=== PATIENT | female | born 1980 | race Caucasian/White ===

== ENCOUNTER 2021-12-12 15:17 | Outpatient (CLI) | payer SELFPAY ==
--- NOTE | 2021-12-12 15:25 | XR_ITS ---
WS: [id number] Chest 2 views, 12/12/2021 Clinical Data: POSITIVE TB Comparison: None. Findings: No nodules, masses or effusions are seen. The heart is normal. The pulmonary vascularity is not increased. No pneumonia or pneumothorax is seen. There is no evidence of tuberculosis. XR/XR chest 2V* [id number] Impression: Negative chest.
== END 2021-12-12 15:18 | disposition home or self-care (01) ==
LOC: RAD 15:19
PROVIDERS: Family Provider Electrodiagnostic Medicine; Visit Provider Family Medicine
DX: R76.11 Nonspecific reaction to tuberculin skin test without active tuberculosis (principal)
CPT/HCPCS: 71046

== ENCOUNTER → 2021-12-21 15:35 | Outpatient (BNVA) | payer SELFPAY | PROVIDERS: Family Provider Electrodiagnostic Medicine; PCP Electrodiagnostic Medicine; Visit Provider Registered Nurse Neonatal Intensive Care | DX: R50.9 Fever, unspecified (principal); J02.9 Acute pharyngitis, unspecified; J30.9 Allergic rhinitis, unspecified | CPT/HCPCS: 87426; 87880 ==

== ENCOUNTER 2022-05-19 20:00 | Outpatient (CLI) | payer OTHER, SELFPAY | END 2022-05-19 20:01 | disposition home or self-care (01) | LOC: SLEEP 05-20 05:46 | PROVIDERS: Family Provider Electrodiagnostic Medicine; PCP Electrodiagnostic Medicine; Visit Provider Electrodiagnostic Medicine | DX: G47.10 Hypersomnia, unspecified (principal); R53.83 Other fatigue; G47.33 Obstructive sleep apnea (adult) (pediatric) | CPT/HCPCS: 95810 ==

== ENCOUNTER → 2022-09-17 16:00 | Outpatient (BNVA) | payer OTHER, SELFPAY | PROVIDERS: Family Provider Electrodiagnostic Medicine; PCP Electrodiagnostic Medicine; Visit Provider Nurse Practitioner Women's Health | DX: N92.6 Irregular menstruation, unspecified (principal) | CPT/HCPCS: 84146; 84402; 84443; 84702; 85025 ==

== ENCOUNTER 2022-10-14 06:51 | Outpatient (CLI) | payer OTHER, SELFPAY ==
--- NOTE | 2022-10-14 07:15 | US_ITS ---
WS: [id number] US transvaginal [id number] REASON FOR EXAM: N92.6 - Irregular menstruation, unspecified FINDINGS: Small nabothian cysts in the cervix. The uterus measures 7.06 x 4.52 x 4.14 cm. No uterine mass. The endometrium measures 6.9 mm. There is a complex mass within the left ovary. The solid appearing portion of the mass measures 5.0 x 4.5 x 5.4 cm. The crescent cystic portion measures 1.2 x 4.5 x 3.9 cm. No blood flow is identified with Doppler in the solid portion of the mass. There is a second complex ovarian mass which is characterized as a partially septated cyst. The septa tions while somewhat thickened do not contain blood flow by Doppler interrogation. This mass measures 4.5 x 5.5 x 3.6 cm. In the right adnexa ovarian tissue is not readily identified. There is a complex septated cystic mass in the right adnexa which measures 3.9 x 3.1 x 4.0 cm. No Doppler blood flow identified in the septa tions. Small amount of free fluid in the cul-de-sac. US/US transvaginal [id number] IMPRESSION: Complex pelvic abnormalities as above. The mass that appears partially solid in the left ovary may represent a cyst containing hemorrhage or other debris since no Doppler signal was obtained. The se masses are likely benign with small neoplastic potential. The mass in the right adnexa has the appearance of a complex ovarian cyst howev er definite ovarian origin was not established. This mass has a more significan t potential for neoplasm.
== END 2022-10-14 06:52 | disposition home or self-care (01) ==
PROVIDERS: PCP Electrodiagnostic Medicine; Visit Provider Nurse Practitioner Women's Health
DX: N92.6 Irregular menstruation, unspecified (principal); N93.9 Abnormal uterine and vaginal bleeding, unspecified; R19.00 Intra-abdominal and pelvic swelling, mass and lump, unspecified site; N83.8 Other noninflammatory disorders of ovary, fallopian tube and broad ligament
CPT/HCPCS: 76830

== ENCOUNTER → 2022-10-17 14:14 | Outpatient (BNVA) | payer OTHER, SELFPAY | PROVIDERS: PCP Electrodiagnostic Medicine; Visit Provider Nurse Practitioner Women's Health | DX: N92.6 Irregular menstruation, unspecified (principal); Z01.818 Encounter for other preprocedural examination; Z12.4 Encounter for screening for malignant neoplasm of cervix; N83.299 Other ovarian cyst, unspecified side | CPT/HCPCS: 81025; 87624; 88305 ==

== ENCOUNTER → 2022-11-20 12:08 | Outpatient (BNVA) | payer OTHER, SELFPAY | PROVIDERS: PCP Electrodiagnostic Medicine; Visit Provider Nurse Practitioner Women's Health | DX: N92.6 Irregular menstruation, unspecified (principal); N83.299 Other ovarian cyst, unspecified side | CPT/HCPCS: 81025 ==

== ENCOUNTER → 2022-12-04 10:23 | Outpatient (BNVA) | payer OTHER, SELFPAY | PROVIDERS: PCP Electrodiagnostic Medicine; Visit Provider Nurse Practitioner Women's Health | DX: N92.6 Irregular menstruation, unspecified (principal) | CPT/HCPCS: 76830 ==

== ENCOUNTER → 2023-01-15 11:00 | Outpatient (BNVA) | payer OTHER, SELFPAY | PROVIDERS: PCP Electrodiagnostic Medicine; Visit Provider Obstetrics & Gynecology | DX: N83.299 Other ovarian cyst, unspecified side (principal); I10 Essential (primary) hypertension | CPT/HCPCS: 83001 ==

== ENCOUNTER 2023-01-30 07:22 | Outpatient (CLI) | payer OTHER, SELFPAY ==
--- NOTE | 2023-01-30 07:32 | MM_ITS ---
WS: [id number] SCREENING DIGITAL TOMOSYNTHESIS MAMMOGRAM WITH CAD HISTORY: SCREEN COMPARISON: None available. Bilateral CC and MLO with tomosynthesis views submitted. Synthetic mammography reviewed. Computer aid ed detection analyzed. Breast composition: There are scattered areas of fibroglandular density. No suspicious masses, microc alcifications or architectural distortion. IMPRESSION: MM/[place] [id number] BI-RADS: 1-Negative FOLLOW UP: 1 Year Follow-up
== END 2023-01-30 07:23 | disposition home or self-care (01) ==
LOC: RAD 07:22
PROVIDERS: PCP Electrodiagnostic Medicine; Visit Provider Nurse Practitioner Women's Health
DX: Z12.31 Encounter for screening mammogram for malignant neoplasm of breast (principal)
CPT/HCPCS: 77063; 77067

== ENCOUNTER → 2023-02-10 10:00 | Day surgery (SDC) | payer OTHER, SELFPAY ==
[2023-02-02 10:21] LABS: Add Urine Microscopic? NO; Charge for UA Resulting for Rev
[2023-02-02 10:45] LABS: Basophils # 0.1 10^3/uL (0.0-0.1); Basophils % 0.6 %; Eosinophils # 0.2 10^3/uL (0.0-0.8); Eosinophils % 1.5 %; Hematocrit 43.8 % (36-47); Lymphocytes % 19.4 %; Mean Corpuscular HGB Conc 33.6 g/dL (30-55); Mean Corpuscular Hemoglobin 27.2 pg (27-33); Mean Corpuscular Volume 81.1 fl (85-98); Mean Platelet Volume 8.9 fL (7.4-10.4); Monocytes # 0.3 10^3/uL (0.2-0.9); Monocytes % 2.8 %; Neutrophils # 7.93 10^3/uL (1.8-7.7); Neutrophils % 75.2 %; Nucleated Red Blood Cells % 0 %; Platelet Count 466 10^3/cmm (157-399); Red Cell Distribution Width 13.2 % (12.1-15.1); White Blood Count 10.54 10^3/uL (3.29-11.43)
[2023-02-02 10:47] LABS: Bilirubin Urine Neg (Negative); Blood Urine Neg (Negative); Glucose Urine UA Norm (Normal); Ketones Urine 1+ (Negative); Leukocyte Esterase Urine Negative (Negative); Nitrate Urine Negative (Negative); Protein Urine Neg (Negative); Specific Gravity, Urine 1.015 (1.005-1.030); Urine Appearance Clear (CLEAR); Urine Color Yellow (Yellow); Urobilinogen Urine Norm (Negative); pH Urine 6 (5-7)
[2023-02-02 10:48] LABS: Anion Gap 15.1 (5-19); Blood Urea Nitrogen 12 mg/dL (6-20); Calcium 8.9 mg/dL (8.5-10.5); Carbon Dioxide 26 mmol/L (22-29); Chloride 101 mmol/L (98-107); Glomerular Filtration Rate 91.8 mL/min (90-130); Glucose 155 mg/dL (65-115); Osmolality Calculated 289 mOsm/kg (285-295); Potassium 4.1 mmol/L (3.5-5.1); Sodium 138 mmol/L (136-145)
--- NOTE | 2023-02-02 10:54 | PC.NURSE ---
Notified Dr. Brock and Dr. Rosa nurse Paul of patient medication Isoniazid. Patient states she has been on medication for roughly 10 months per her report and has one more month of medication until her treatment is completed. Patient states she had a positive skin test and was started on the treatment. Per Dr. Brock will reschedule patient procedure until she has completed her course of Isoniazid. Dr. Rosa aware and agreeable. Instructed patient to call clinic.
== END ==
LOC: OR 06-09 11:24
PROVIDERS: PCP Electrodiagnostic Medicine; Visit Provider Obstetrics & Gynecology
DX: Z53.9 Procedure and treatment not carried out, unspecified reason (principal)
CPT/HCPCS: 80048; 81003; 85025

== ENCOUNTER 2023-03-20 08:10 | Emergency (ER) | payer OTHER, SELFPAY ==
[2023-03-20 08:16] VITALS: PULSE 101; RESP 18; TEMP 37.4; O2SAT 99; BMI 44.6
--- NOTE | 2023-03-20 08:23 | ED_ITS ---
HPI - Allergic Reaction General: Chief complaint: Allergic Reaction Stated complaint: alergic reaction Time Seen by Provider: 03/20/23 08:12 Source: patient Mode of arrival: ambulatory Limitations: no limitations History of Present Illness: HPI narrative: 43-year-old female states that she woke up this morning and having some swelling in her lips folic she had some slight throat swelling. She denies any shortness of breath.She denies any vomiting or diarrhea. She is on lisinopril has never had allergic reaction the past. Associated symptoms: Deny abdominal pain, nausea or vomiting Review of Systems Const: Denies: fever(s), chills, body aches or change in appetite ENMT: Denies: throat pain or dental pain Card: Denies: chest pain Resp: Denies: dyspnea GI: Denies: abdominal pain, nausea, vomiting or diarrhea Musc: Denies: neck pain or back pain Skin/Breast: Denies: rash Neuro: Denies: headache(s) PFSH ED PFSH: Medical History Bartholin cyst (~2018) I patient reported history that was suspicious for her originally having a Bartholin's gland abscess. However, at this point, there is no evidence of abscess. All I can find on exam is a mildly enlarged cystic structure in the area of the Bartholin's gland. I discussed with her that a Bartholin's gland cyst does not need to be treated. If, however, it becomes painful or start showing signs of infection, it can be drained or possibly be treated by a marsupialization. Questions were answered No pertinent past medical history neghx: thyroid,dvt/pe PCP: Dr. Cabrera Hypertension Type 2 diabetes mellitus Anxiety with depression Surgical History No pertinent past surgical history Family History Mother Diabetes Hypertension Grandmother Diabetes maternal paternal Stroke paternal Father Diabetes Grandfather Heart disease paternal Family/Other Heart disease paternal uncle Denies family history of Colon cancer Ovarian cancer Hyperlipidemia Breast cancer Uterine cancer Thyroid disease Physical Exam Const: COMMON NORMALS: no acute distress, patient oriented x3 and healthy appearing HENMT: COMMON NORMALS: normocephalic and atraumatic HEAD & SCALP: normocephalic and atraumatic OTHER: Slight swelling of lips no tongue swelling handling secretions well. Eye: COMMON NORMALS: Equal, round and reactive pupils present and EOMs intact bilaterally PUPIL: Yes Equal, round and reactive pupils present Neck/C-Spine: COMMON NORMALS: full ROM and supple Chest: COMMONS NORMALS: normal inspection of the chest and normal palpation of entire chest wall Resp: COMMON NORMALS: normal respiratory effort, No retractions, No use of accessory muscles and clear to auscultation bilaterally AUSCULTATION: clear to auscultation bilaterally Cardio: COMMON NORMALS: regular rate, regular rhythm and No murmurs present (Cardio) RATE: regular rate RHYTHM: regular rhythm GI: COMMON NORMALS: Normal to inspection, nondistended, normoactive bowel sounds present, Soft to palpation, non-tender and no masses PALPATION: Yes Soft to palpation Extremity: COMMON NORMALS: normal to inspection and full ROM Neuro: COMMON NORMALS: patient oriented x3, moves all extremities and no focal motor deficits Psych: COMMON NORMALS: mental status grossly normal, Normal thought process present and cooperative THOUGHT PROCESS: Normal thought process present Skin: COMMON NORMALS: no rashes or lesions noted and no wounds GENERAL SKIN EXAM: no rashes or lesions noted Course Vital Signs: Vital signs: Vital Signs Temperature 99.3 F 03/20/23 08:16 Pulse Rate 94 03/20/23 08:43 Respiratory Rate 18 03/20/23 08:43 Blood Pressure 177/111 03/20/23 08:43 Pulse Oximetry 98 03/20/23 08:43 Oxygen Delivery Me thod Room Air 03/20/23 08:43 MDM - Allergic Reaction Medical Decision Making patient presents for lip swelling mild angioedema possibly from her lisinopril she is improved here she has no signs of airway involvement I feel she is stable for discharge. Did inform her to stop taking her lisinopril we will start her on Norvasc at this time she is to follow-up with PCP and return if worsening. Medical Records I reviewed the patient's medical records. No radiology studies performed this visit Discharge Plan Discharge Patient Disposition: Home Clinical Impression: Angioedema Condition: Stable Prescriptions: New Norvasc 10 mg tablet 10 mg PO DAILY Qty: 30 0RF Discontinued lisinopril 40 mg tablet 40 mg PO QAM No Action metoprolol tartrate 25 mg tablet 25 mg PO QAM nifedipine 90 mg tablet extended release 90 mg PO QAM Rybelsus 3 mg tablet 3 mg PO QAM metformin 500 mg tablet 500 mg PO BID pantoprazole 40 mg tablet,delayed release (DR/EC) 40 mg PO QAM venlafaxine 150 mg capsule,extended release 24hr 150 mg PO BEDTIME benzonatate 100 mg capsule 100 mg PO TID PRN (Reason: Cough) olopatadine 0.1 % drops See Rx Instructions .ROUTE .COMPLEX Rx Instructions: instill ONE drop into THE affected eye(s) TWICE DAILY PER an interval of 6-8 HOURS albuterol sulfate 90 mcg/actuation HFA aerosol inhaler 1 - 2 puff INHALATION Q4H PRN (Reason: Shortness Of Breath) budesonide-formoterol 160-4.5 mcg/actuation HFA aerosol inhaler 2 puff INHALATION BID Flonase Allergy Relief 50 mcg/actuation spray,suspension 1 - 2 spray intranasal DAILY PRN (Reason: Allergy Symptoms) Rx Instructions: administer into each nostril Discharge Orders: Discharge ED (Routine); Ordered 03/20/23 Ordered By: Carole Catalan Referrals: Ravi Cabrera DO [Primary Care Provider] - 1-3 days Discharge Diet: Advance as tolerated Discharge Activity: Resume usual activity Patient Instructions: Angioedema (ED) Coding Level of Care Code ED [employer] Hand for Deanna Campos
[2023-03-20] MEDS: famotidine 20 mg/2 mL INJ 40 MG IVP (08:38)
[2023-03-20] MEDS: diphenhydrAMINE 50 mg/mL SDV 1mL IVP (08:38)
[2023-03-20] MEDS: methylPREDNISolone sod succ 125 mg/2 mL INJ IVP (08:39)
[2023-03-20 08:43] VITALS: BP 177/111; PULSE 94; RESP 18; O2SAT 98
--- NOTE | 2023-03-20 09:12 | PC.PHAR ---
pt states she takes care of her own medications-pt states she is no longer taking isoniazid 300mg daily ext shows last filled 01/26/23 30d/s-ext shows prednisone 20mg take 40mg qam rx filled on 03/11/23 10d/s pt states not taken for 2-3 days states she was feeling better and states the dr told her she could stop taking
== END 2023-03-20 09:52 | disposition home or self-care (01) ==
PROVIDERS: Emergency Provider Emergency Medicine; PCP Electrodiagnostic Medicine
DX: T78.3XXA Angioneurotic edema, initial encounter (principal); I10 Essential (primary) hypertension; E11.9 Type 2 diabetes mellitus without complications; X58.XXXA Exposure to other specified factors, initial encounter
CPT/HCPCS: 96374; 96375; 99284; J1200; J2930; J3490

== ENCOUNTER 2023-03-21 10:56 | Emergency (ER) | payer OTHER, SELFPAY ==
[2023-03-21 11:07] VITALS: BP 213/123; PULSE 87; RESP 22; O2SAT 95
[2023-03-21] MEDS: diphenhydrAMINE 50 mg/mL SDV 1mL IVP (11:23)
--- NOTE | 2023-03-21 11:23 | W.ED.ALLEREA ---
HPI - Allergic Reaction General: Chief complaint: Allergic Reaction Stated complaint: allergic reaction Time Seen by Provider: 03/21/23 10:57 Source: patient Mode of arrival: ambulatory Limitations: no limitations History of Present Illness: HPI narrative: 43-year-old female seen here yesterday for angioedema is likely due to her lisinopril she did stop her lisinopril states she felt like she had little worsening swelling of her lips and tongue. She is in no severe distress. No difficulty swallowing she denies any worsening proving factors did take a Benadryl at home. Associated symptoms: Deny abdominal pain, nausea or vomiting Review of Systems Const: Denies: fever(s), chills, body aches or change in appetite ENMT: Denies: throat pain or dental pain Card: Denies: chest pain Resp: Denies: dyspnea GI: Denies: abdominal pain, nausea, vomiting or diarrhea : Denies: dysuria Musc: Denies: neck pain or back pain Skin/Breast: Denies: rash Neuro: Denies: headache(s) PFSH ED PFSH: Medical History Bartholin cyst (~2018) I patient reported history that was suspicious for her originally having a Bartholin's gland abscess. However, at this point, there is no evidence of abscess. All I can find on exam is a mildly enlarged cystic structure in the area of the Bartholin's gland. I discussed with her that a Bartholin's gland cyst does not need to be treated. If, however, it becomes painful or start showing signs of infection, it can be drained or possibly be treated by a marsupialization. Questions were answered No pertinent past medical history neghx: thyroid,dvt/pe PCP: Dr. Cabrera Hypertension Type 2 diabetes mellitus Anxiety with depression Surgical History No pertinent past surgical history Family History Mother Diabetes Hypertension Grandmother Diabetes maternal paternal Stroke paternal Father Diabetes Grandfather Heart disease paternal Family/Other Heart disease paternal uncle Denies family history of Colon cancer Ovarian cancer Hyperlipidemia Breast cancer Uterine cancer Thyroid disease Physical Exam Const: COMMON NORMALS: no acute distress, patient oriented x3 and healthy appearing HENMT: COMMON NORMALS: normocephalic and atraumatic HEAD & SCALP: normocephalic and atraumatic OTHER: Slight swelling of the lips no breathing difficulties no severe tongue swelling Eye: COMMON NORMALS: Equal, round and reactive pupils present and EOMs intact bilaterally PUPIL: Yes Equal, round and reactive pupils present Neck/C-Spine: COMMON NORMALS: full ROM and supple Chest: COMMONS NORMALS: normal inspection of the chest and normal palpation of entire chest wall Resp: COMMON NORMALS: normal respiratory effort, No retractions, No use of accessory muscles and clear to auscultation bilaterally AUSCULTATION: clear to auscultation bilaterally Cardio: COMMON NORMALS: regular rate, regular rhythm and No murmurs present (Cardio) RATE: regular rate RHYTHM: regular rhythm GI: COMMON NORMALS: Normal to inspection, nondistended, normoactive bowel sounds present, Soft to palpation, non-tender and no masses PALPATION: Yes Soft to palpation Extremity: COMMON NORMALS: normal to inspection and full ROM Neuro: COMMON NORMALS: patient oriented x3, moves all extremities and no focal motor deficits Psych: COMMON NORMALS: mental status grossly normal, Normal thought process present and cooperative THOUGHT PROCESS: Normal thought process present Skin: COMMON NORMALS: no rashes or lesions noted and no wounds GENERAL SKIN EXAM: no rashes or lesions noted Course Vital Signs: Vital signs: Vital Signs Pulse Rate 83 03/21/23 12:42 Respiratory Rate 15 03/21/23 13:24 Blood Pressure 140/84 03/21/23 13:24 Pulse Oximetry 97 03/21/23 13:24 Oxygen Delivery Me thod Room Air 03/21/23 13:24 MDM - Allergic Reaction Medical Decision Making Patient presents here with angioedema that is improved here she has no severe swelling she is stable for discharge she is to continue the Norvasc she is stopped her lisinopril follow-up PCP and return if worsening. Medical Records I reviewed the patient's medical records. Lab Data I reviewed the patient's lab results. 03/21/23 11:19 03/21/23 11:[address] 03/21/23 11:36 IMPRESSION: No acute findings. Laboratory Results WBC 20.24 10^3/uL (3.29-11.43) H 03/21/23 11:19 RBC 4.71 10^6/uL (3.85-5.65) 03/21/23 11:19 Hgb 12.70 g/dL (11.27-16.99) 03/21/23 11:19 Hct 39.3 % (36-47) 03/21/23 11:19 MCV 83.4 fl (85-98) L 03/21/23 11:19 MCH 27.0 pg (27-33) 03/21/23 11:19 MCHC 32.3 g/dL (30-55) 03/21/23 11:19 RDW 14.6 % (12.1-15.1) 03/21/23 11:19 Plt Count 427 10^3/cmm (157-399) H 03/21/23 11:19 MPV 9.0 fL (7.4-10.4) 03/21/23 11:19 Neut % (Auto) 68.3 % 03/21/23 11:19 Lymph % (Auto) 20.7 % 03/21/23 11:19 [place] % (Auto) 4.3 % 03/21/23 11:19 Eos % (Auto) 5.8 % 03/21/23 11:19 Baso % (Auto) 0.3 % 03/21/23 11:19 Neut # (Auto) 13.80 10^3/uL (1.8-7.7) H 03/21/23 11:19 Lymph # (Auto) 4.2 10^3/uL (0.8-4.8) 03/21/23 11:19 [place] # (Auto) 0.9 10^3/uL (0.2-0.9) 03/21/23 11:19 Eos # (Auto) 1.2 10^3/uL (0.0-0.8) H 03/21/23 11:19 Baso # (Auto) 0.1 10^3/uL (0.0-0.1) 03/21/23 11:19 Nucleated RBC % (auto) 0 % 03/21/23 11:19 Nucleated RBCs # 0.0 /100WBC 03/21/23 11:19 Sodium 136 mmol/L (136-145) 03/21/23 11:19 Potassium 4.3 mmol/L (3.5-5.1) 03/21/23 11:19 Chloride 100 mmol/L (98-107) 03/21/23 11:19 Carbon Dioxide 28 mmol/L (22-29) 03/21/23 11:19 Anion Gap 12.3 (5-19) 03/21/23 11:19 BUN 15 mg/dL (6-20) 03/21/23 11:19 Creatinine 0.6 mg/dL (0.5-0.9) 03/21/23 11:19 GFR Calculation 109.1 mL/min (90-130) 03/21/23 11:19 Glucose 147 mg/dL (65-115) H 03/21/23 11:19 Calculated Osmolality 286 mOsm/kg (285-295) 03/21/23 11:19 Calcium 8.8 mg/dL (8.5-10.5) 03/21/23 11:19 Total Bilirubin 0.4 mg/dL (0.15-1.2) 03/21/23 11:19 AST 11 U/L (0-32) 03/21/23 11:19 ALT 16 U/L (0-33) 03/21/23 11:19 Alkaline Phosphatase 66 U/L (35-105) 03/21/23 11:19 Total Protein 6.7 g/dL (6.6-8.7) 03/21/23 11:19 Albumin 3.9 g/dL (3.5-5.2) 03/21/23 11:19 Globulin 2.8 g/dL (1.3-4.6) 03/21/23 11:19 All radiology interpretation(s) finalized by discharge Discharge Plan Discharge Patient Disposition: Home Clinical Impression: Angioedema Condition: Stable Prescriptions: No Action metoprolol tartrate 25 mg tablet 25 mg PO QAM nifedipine 90 mg tablet extended release 90 mg PO QAM Rybelsus 3 mg tablet 3 mg PO QAM metformin 500 mg tablet 500 mg PO BID pantoprazole 40 mg tablet,delayed release (DR/EC) 40 mg PO QAM venlafaxine 150 mg capsule,extended release 24hr 150 mg PO BEDTIME olopatadine 0.1 % drops See Rx Instructions .ROUTE .COMPLEX PRN (Reason: ALLERGIES) Rx Instructions: instill ONE drop into THE affected eye(s) TWICE DAILY PER an interval of 6-8 HOURS albuterol sulfate 90 mcg/actuation HFA aerosol inhaler 1 - 2 puff INHALATION Q4H PRN (Reason: Shortness Of Breath) budesonide-formoterol 160-4.5 mcg/actuation HFA aerosol inhaler 2 puff INHALATION BID fluticasone propionate [Flonase Allergy Relief] 50 mcg/actuation spray,suspension 1 - 2 spray intranasal DAILY PRN (Reason: Allergy Symptoms) amlodipine [Norvasc] 10 mg tablet 10 mg PO DAILY Qty: 30 0RF Discharge Orders: Discharge ED (Routine); Ordered 03/21/23 Ordered By: Carole Catalan Referrals: Ravi Cabrera DO [Primary Care Provider] - 1-3 days Discharge Diet: Advance as tolerated Discharge Activity: Resume usual activity Patient Instructions: Angioedema (ED) Coding Level of Care Code ED Director Of Counseling for Deanna Campos
[2023-03-21] MEDS: methylPREDNISolone sod succ 125 mg/2 mL INJ IVP (11:24)
[2023-03-21] MEDS: famotidine 20 mg/2 mL INJ 40 MG IVP (11:25)
[2023-03-21] MEDS: labetalol 5 mg/mL SDV 20mL 10 MG IVP (11:27)
[2023-03-21 11:29] VITALS: BP 170/89; PULSE 87; RESP 18; O2SAT 96
[2023-03-21 11:35] LABS: Basophils # 0.1 10^3/uL (0.0-0.1); Basophils % 0.3 %; Eosinophils # 1.2 10^3/uL (0.0-0.8); Eosinophils % 5.8 %; Hematocrit 39.3 % (36-47); Lymphocytes # 4.2 10^3/uL (0.8-4.8); Lymphocytes % 20.7 %; Mean Corpuscular HGB Conc 32.3 g/dL (30-55); Mean Corpuscular Volume 83.4 fl (85-98); Monocytes # 0.9 10^3/uL (0.2-0.9); Monocytes % 4.3 %; Neutrophils % 68.3 %; Nucleated Red Blood Cells % 0 %; Platelet Count 427 10^3/cmm (157-399); Red Blood Count 4.71 10^6/uL (3.85-5.65); Red Cell Distribution Width 14.6 % (12.1-15.1); White Blood Count 20.24 10^3/uL (3.29-11.43)
--- NOTE | 2023-03-21 11:36 | CTR_ITS ---
PROCEDURE INFORMATION: Exam: CT Neck With Contrast Exam date and time: 03/21/2023 11:47 AM Age: 43 years old Clinical indication: Dysphagia / difficulty swallowing; Additional info: Swelling TECHNIQUE: Imaging protocol: Computed tomography of the neck with contrast. Radiation optimization: All CT scans at this facility use at least one of these dose optimization techniques: automated exposure control; mA and/or kV adjustment per patient size (includes targeted exams where dose is matched to clinical indication); or iterative reconstruction. Contrast material: OMNI 350; Contrast volume: 80 ml; Contrast route: INTRAVENOUS (IV); REPORTING DATA: Count of CT and Cardiac NM exams in prior 12 months: This patient has received 0 known CTs and 0 known cardiac nuclear medicine studies in the 12 months prior to the current study. COMPARISON: CR XR chest 2V* [id number] 12/12/2021 3:33 PM RADIATION DOSE METRICS: Total DLP (mGy-cm): 395.34 FINDINGS: Pharynx: No significant tonsillar enlargement. Larynx: Epiglottis is normal. Prevertebral and retropharyngeal spaces: No acute findings. Salivary glands: Glands are normal in size. Thyroid: No enlarged or calcified nodules. Lymph nodes: No lymphadenopathy. Trachea: Visualized trachea is unremarkable. Lungs: Unremarkable as visualized. Bones/joints: No acute findings. Soft tissues: No significant soft tissue swelling. CT/CT neck w con* [id number] IMPRESSION: No acute findings.
[2023-03-21] MEDS: iohexol 350 mg/mL 500 mL Btl (per mL) IV (11:51)
[2023-03-21 12:23] LABS: Alanine Aminotransferase 16 U/L (0-33); Albumin Level 3.9 g/dL (3.5-5.2); Alkaline Phosphatase 66 U/L (35-105); Blood Urea Nitrogen 15 mg/dL (6-20); Calcium 8.8 mg/dL (8.5-10.5); Carbon Dioxide 28 mmol/L (22-29); Chloride 100 mmol/L (98-107); Creatinine Clr Calc Pharmacy 158.0773; Globulin 2.8 g/dL (1.3-4.6); Glomerular Filtration Rate 109.1 mL/min (90-130); Glucose 147 mg/dL (65-115); Osmolality Calculated 286 mOsm/kg (285-295); Sodium 136 mmol/L (136-145); Total Bilirubin 0.4 mg/dL (0.15-1.2); Total Protein 6.7 g/dL (6.6-8.7)
[2023-03-21 12:42] VITALS: BP 151/95; PULSE 83; O2SAT 95
[2023-03-21 12:59] LABS: Anion Gap 12.3 (5-19); Aspartate Amino Transferase 11 U/L (0-32); Potassium 4.3 mmol/L (3.5-5.1)
[2023-03-21 13:24] VITALS: BP 140/84; RESP 15; O2SAT 97
[2023-03-21 13:39] VITALS: BP 139/42; RESP 15; O2SAT 97
== END 2023-03-21 13:40 | disposition home or self-care (01) ==
PROVIDERS: Emergency Provider Emergency Medicine; PCP Electrodiagnostic Medicine
DX: T78.3XXA Angioneurotic edema, initial encounter (principal); X58.XXXA Exposure to other specified factors, initial encounter; Z79.84 Long term (current) use of oral hypoglycemic drugs; I10 Essential (primary) hypertension; E11.9 Type 2 diabetes mellitus without complications
CPT/HCPCS: 70491; 80053; 85025; 96374; 96375; 99285; J1200; J2930; J3490; Q9967

== ENCOUNTER 2023-03-30 10:40 | Emergency (ER) | payer OTHER, SELFPAY ==
[2023-03-30 10:54] VITALS: BP 167/102; PULSE 73; RESP 18; TEMP 36.7; O2SAT 95; BMI 44.1
--- NOTE | 2023-03-30 11:59 | ED_ITS ---
HPI - Allergic Reaction General: Chief complaint: Allergic Reaction Stated complaint: rash Time Seen by Provider: 03/30/23 11:44 Source: patient Mode of arrival: ambulatory History of Present Illness: HPI narrative: 43-year-old female presents emergency ro om complaining of swelling in her throat itching in her throat she is been here twice for last days initially she thought she is having angioedema from her lisinopril was stopped she was started on Norvasc she returned had no significant findings at time none of her other medications were changed currently she is taking clonidine. Reviewing her chart states she is also on nifedipine. She is in no acute respiratory distress at this time. She refers to some rash around her neck and under her breasts as well as the throat discomfort. There is no significant facial swelling MD complaint: allergic reaction Associated symptoms: Reports hoarseness; Deny abdominal pain, difficulty breathing, dysphagia, dizziness, facial swelling, itching, lip swelling, nausea, rash, tongue swelling or vomiting Severity: mild Treatment prior to arrival: benadryl Previous Allergic Reaction History: prior ED visit(s) Review of Systems Const: Denies: fever(s) or chills ENMT: Reports: hoarseness Card: Denies: chest pain Resp: Denies: dyspnea GI: Denies: abdominal pain, nausea, vomiting or dysphagia : Denies: dysuria, urinary frequency or urinary urgency Musc: Denies: neck pain or back pain Skin/Breast: Denies: rash Neuro: Denies: dizziness All/Imm: Denies: tongue swelling or facial swelling PFS ED PFSH: Medical History Bartholin cyst (~2018) I patient reported history that was suspicious for her originally having a Bartholin's gland abscess. However, at this point, there is no evidence of abscess. All I can find on exam is a mildly enlarged cystic structure in the area of the Bartholin's gland. I discussed with her that a Bartholin's gland cyst does not need to be treated. If, however, it becomes painful or start showing signs of infection, it can be drained or possibly be treated by a marsupialization. Questions were answered No pertinent past medical history neghx: thyroid,dvt/pe PCP: Dr. Cabrera Hypertension Type 2 diabetes mellitus Anxiety with depression Surgical History No pertinent past surgical history Family History Mother Diabetes Hypertension Grandmother Diabetes maternal paternal Stroke paternal Father Diabetes Grandfather Heart disease paternal Family/Other Heart disease paternal uncle Denies family history of Colon cancer Ovarian cancer Hyperlipidemia Breast cancer Uterine cancer Thyroid disease Physical Exam Const: COMMON NORMALS: no acute distress GENERAL APPEARANCE: cooperative and comfortable ORIENTATION/CONSCIOUSNESS: Yes awake, Yes oriented to person, Yes oriented to place and Yes oriented to time HENMT: COMMON NORMALS: normocephalic, atraumatic and hearing grossly normal bilaterally HEAD & SCALP: normocephalic and atraumatic Resp: COMMON NORMALS: normal respiratory effort, No retractions, No use of accessory muscles and clear to auscultation bilaterally AUSCULTATION: clear to auscultation bilaterally Cardio: COMMON NORMALS: regular rate, regular rhythm and No murmurs present (Cardio) RATE: regular rate RHYTHM: regular rhythm GI: COMMON NORMALS: Soft to palpation and No hepatosplenomegaly present AUSCULTATION: Yes normoactive bowel sounds PALPATION: Yes Soft to palpation, No Tenderness to palpation present (GI), No Guarding due to palpation present (GI) and Yes No hepatosplenomegaly present Extremity: COMMON NORMALS: normal to inspection, capillary refill normal, no clubbing, cyanosis or edema, no calf tenderness and no pedal edema Neuro: SENSORIUM/ORIENTATION: Yes oriented to person, Yes oriented to place and Yes oriented to time Skin: COMMON NORMALS: no rashes or lesions noted GENERAL SKIN EXAM: no rashes or lesions noted Course Vital Signs: Vital signs: Vital Signs Temperature 98.0 F 03/30/23 10:54 Pulse Rate 73 03/30/23 10:54 Respiratory Rate 18 03/30/23 10:54 Blood Pressure 167/102 03/30/23 10:54 Pulse Oximetry 95 03/30/23 10:54 Oxygen Delivery Me thod Room Air 03/30/23 10:54 MDM - Allergic Reaction Medical Decision Making Improved after Benadryl and steroids. Will discharge patient home begin oral steroid taper tomorrow start cetirizine 10 mg twice daily. Physical exam findings were not very impressive for a systemic reaction. She may need to have further evaluation with software engineer intern at some point. Patient asked if we thought the clonidine was a precipitating cause I tend to think it is not based on the reactions she had it seems very minimal did not seem systemic at this point and she has been having these types of reactions for 10 days now with predated clonidine. Continue current medications recheck with primary care next week. Medical Records I reviewed the patient's medical records. Lab Data I reviewed the patient's lab results. No radiology studies performed this visit Discharge Plan Discharge Patient Disposition: Home Clinical Impression: Allergic reaction Condition: Stable Prescriptions: New prednisone 20 mg tablet 20 mg PO TID Qty: 15 0RF Rx Instructions: 1 p.o. 3 times daily x3 days, 1 p.o. twice daily x2 days, 1 p.o. daily x2 days cetirizine 10 mg tablet 10 mg PO BID Qty: 60 0RF No Action metoprolol tartrate 25 mg tablet 25 mg PO QAM nifedipine 90 mg tablet extended release 90 mg PO QAM Rybelsus 3 mg tablet 3 mg PO QAM metformin 500 mg tablet 500 mg PO BID pantoprazole 40 mg tablet,delayed release (DR/EC) 40 mg PO QAM venlafaxine 150 mg capsule,extended release 24hr 150 mg PO BEDTIME olopatadine 0.1 % drops See Rx Instructions .ROUTE .COMPLEX PRN (Reason: ALLERGIES) Rx Instructions: instill ONE drop into THE affected eye(s) TWICE DAILY PER an interval of 6-8 HOURS albuterol sulfate 90 mcg/actuation HFA aerosol inhaler 1 - 2 puff INHALATION Q4H PRN (Reason: Shortness Of Breath) budesonide-formoterol 160-4.5 mcg/actuation HFA aerosol inhaler 2 puff INHALATION BID fluticasone propionate [Flonase Allergy Relief] 50 mcg/actuation spray,suspension 1 - 2 spray intranasal DAILY PRN (Reason: Allergy Symptoms) amlodipine [Norvasc] 10 mg tablet 10 mg PO DAILY Qty: 30 0RF Discharge Orders: Discharge ED (Routine); Ordered 03/30/23 Ordered By: Hunter Yoo Referrals: Ravi Cabrera, DO [Primary Care Provider] - Discharge Diet: Usual diet Discharge Activity: Resume usual activity Patient Instructions: Opioid Safety, Pain Management Activity Restrictions/Additional Instructions: Thank you for choosing [facility] for your healthcare needs today. Please realize this is an emergency room and that we are providing you with a medical screening exam and this may not be complete and all inclusive of all the testing and or work up that you may need to determine your ailment or severity of your illness. It is very important that you follow up as instructed or that you return to the Emergency Department should you have concerns or if your condition changes or worsens in any way. Follow-up with your doctor within the next 10 to 14 days Coding Level of Care Code ED Systems Requirements Planner for Deanna Campos
[2023-03-30] MEDS: diphenhydrAMINE 50 mg/mL SDV 1mL IVP (12:22)
[2023-03-30] MEDS: dexamethasone 10 mg/mL INJ IVP (12:22)
[2023-03-30] MEDS: famotidine 20 mg/2 mL INJ 40 MG IVP (12:22)
== END 2023-03-30 14:07 | disposition home or self-care (01) ==
PROVIDERS: Emergency Provider Family Medicine; PCP Electrodiagnostic Medicine
DX: T78.40XA Allergy, unspecified, initial encounter (principal); I10 Essential (primary) hypertension; E11.9 Type 2 diabetes mellitus without complications; Z79.84 Long term (current) use of oral hypoglycemic drugs; X58.XXXA Exposure to other specified factors, initial encounter
CPT/HCPCS: 96374; 96375; 99284; J1100; J1200; J3490

== ENCOUNTER 2023-05-26 14:11 | Day surgery (SDC) | payer OTHER, SELFPAY ==
--- NOTE | 2023-05-21 09:31 | ANES.PREANE2 ---
Pre-Anesthetic Assessment Height/Weight: Height 1.65 m Operation Date: 05/26/23 14:40 Proposed Procedures p Hysteroscopy, dilation and curettage with Myosure [id number], [id number] <n93.9(Not Applicable) - Michael Rosa MD s Dilation And Curettage (D&C)(Not Applicable) - Michael Rosa MD Familial anesthetic complications: none Was Beta Perla taken within 24 hours: Yes Was Clonidine taken within 24 hours: Yes Social No alcohol and No tobacco Exam alert, oriented x 3, clear to auscultation bilaterally and regular rate & rhythm Airway Submandibular: within normal limits Cervical ROM: within normal limits Mallampati: Class II Dentition: full Pulmonary Asthma CV/HEM Hypertension GI Gastroesophageal Reflux Disease Metabolic Diabetes Mellitus and Morbid Obesity Neuropsych Anxiety and Depression Anesthetic Plan ASA status: 3 Anesthesia: General Medications/Allergies Home Medications Medication Instructions Recorded Confirmed Last Taken Type metoprolol tartrate 25 mg tablet 100 mg PO BID 12/28/19 05/21/23 1 Day Ago History ~05/20/23 metformin 500 mg tablet 500 mg PO BID 09/17/22 05/21/23 1 Day Ago History ~05/20/23 nifedipine 90 mg tablet,extended 90 mg PO QAM 09/17/22 05/21/23 1 Day Ago History release ~05/20/23 pantoprazole 40 mg tablet,delayed 40 mg PO QAM 09/17/22 05/21/23 1 Day Ago History release ~05/20/23 semaglutide 3 mg tablet (Rybelsus) 3 mg PO QAM 09/17/22 05/21/23 1 Day Ago History ~05/20/23 venlafaxine 150 mg 150 mg PO BEDTIME 09/17/22 05/21/23 1 Day Ago History capsule,extended release 24 hr ~05/20/23 albuterol sulfate 90 mcg/actuation 1 - 2 puff inhalation Q4H PRN 03/20/23 05/21/23 Unknown History aerosol inhaler Shortness Of Breath fluticasone propionate 50 1 - 2 spray intranasal DAILY PRN 03/20/23 05/21/23 Unknown History mcg/actuation nasal Allergy Symptoms spray,suspension (Flonase Allergy Relief) olopatadine 0.1 % eye drops See Rx Instructions .Route 03/20/23 05/21/23 Unknown History .COMPLEX PRN ALLERGIES cetirizine 10 mg tablet 10 mg PO DAILY 05/21/23 05/21/23 Unknown History Allergies Allergy/AdvReac Type Severity Reaction Status Date / Time budesonide [From Symbicort] Allergy ALGY-Anaphy Verified 05/21/23 09:10 laxis formoterol [From Symbicort] Allergy ALGY-Anaphy Verified 05/21/23 09:10 laxis lisinopril Allergy ALGY-Anaphy Verified 05/21/23 09:07 laxis Sulfa (Sulfonamide Allergy RASH Verified 05/21/23 09:07 Antibiotics) [facility] Anesthesia Medical History Bartholin cyst (~2018) I patient reported history that was suspicious for her originally having a Bartholin's gland abscess. However, at this point, there is no evidence of abscess. All I can find on exam is a mildly enlarged cystic structure in the area of the Bartholin's gland. I discussed with her that a Bartholin's gland cyst does not need to be treated. If, however, it becomes painful or start showing signs of infection, it can be drained or possibly be treated by a marsupialization. Questions were answered No pertinent past medical history neghx: thyroid,dvt/pe PCP: Dr. Cabrera Hypertension Type 2 diabetes mellitus Anxiety with depression Surgical History No pertinent past surgical history Family History Mother Diabetes Hypertension Grandmother Diabetes maternal paternal Stroke paternal Father Diabetes Grandfather Heart disease paternal Family/Other Heart disease paternal uncle Denies family history of Colon cancer Ovarian cancer Hyperlipidemia Breast cancer Uterine cancer Thyroid disease Data Anesthesia Cardiac Studies: No Data to Display
[2023-05-26] VITALS (13 sets, daily range): BP systolic 154–215; BP diastolic 95–140; PULSE 85–101; RESP 16–18; TEMP 36.1–36.9; O2SAT 90–96; BMI 44.4
--- NOTE | 2023-05-26 12:21 | P.ANESUD_ITS ---
Pre-Anesthetic Update Pre-Anesthetic Assessment: Date of Surgery/Procedure: 05/26/23 Proposed Procedure: Operation Date: 05/26/23 15:40 Proposed Procedures p Hysteroscopy, dilation and curettage with Myosure [id number], [id number] <n93.9(Not Applicable) - Michael Rosa MD s Dilation And Curettage (D&C)(Not Applicable) - Michael Rosa MD Any changes to Pre-Anesthetic Assessment?: No Last Intake: > 8hrs Exam: Pre-Anes Outpt Exam: alert, oriented x 3, clear to auscultation bilate rally and regular rate & rhythm Cardiac Studies: No Data to Display
[2023-05-26 14:40] LABS: OR HCG Qualitative Urine Negative (Negative)
--- NOTE | 2023-05-26 15:29 | W.PM.OPSUD ---
Surgery/Procedure H&P Update DATE OF PROCEDURE: May 26, 2023 DATE H&P PERFORMED: 05/18/23 H&P UPDATE INFORMATION: I have reviewed H&P completed within last 30 days, I have examined patient prior to procedure and No changes to prior documentation PREOP DIAGNOSIS: abnormal uterine bleeding, left ovarian mass/cyst PLANNED PROCEDURE: Operation Date: 05/26/23 15:40 Proposed Procedures p Hysteroscopy, dilation and curettage with Myosure [id number], [id number] <n93.9(Not Applicable) - Michael Rosa MD s Dilation And Curettage (D&C)(Not Applicable) - Michael Rosa MD
[2023-05-26 15:32] LABS: Add Urine Microscopic? YES; Bilirubin Urine Neg (Negative); Blood Urine 2+ (Negative); Glucose Urine UA Norm (Normal); Ketones Urine Negative (Negative); Leukocyte Esterase Urine Negative (Negative); Nitrate Urine Negative (Negative); Protein Urine Neg (Negative); Urine Appearance Cloudy (CLEAR); Urine Color Yellow (Yellow); Urobilinogen Urine Norm (Negative); pH Urine 5 (5-7)
[2023-05-26] MEDS: sodium chloride 0.9% 500 ML IV (15:35)
[2023-05-26] MEDS: sodium chloride 0.9% 1,000 ML 30 ML IV (15:36)
[2023-05-26] MEDS: scopolamine 1.5 Patch 1 PATCH TRANSDERMA (15:40)
[2023-05-26 15:47] LABS: Add Urine Culture? No; Bacteria Urine TRACE /hpf; Mucus Urine 3+ /hpf; RBC Urine 0-4 /hpf (0-2); WBC Urine 0-4 /hpf (0-5)
[2023-05-26 15:52] LABS: Basophils # 0.1 10^3/uL (0.0-0.1); Basophils % 0.7 %; Eosinophils # 0.5 10^3/uL (0.0-0.8); Eosinophils % 6.4 %; Hematocrit 42.9 % (36-47); Lymphocytes # 2.7 10^3/uL (0.8-4.8); Lymphocytes % 32.4 %; Mean Corpuscular HGB Conc 33.1 g/dL (30-55); Mean Corpuscular Hemoglobin 26.8 pg (27-33); Mean Corpuscular Volume 80.9 fl (85-98); Mean Platelet Volume 9.2 fL (7.4-10.4); Monocytes # 0.5 10^3/uL (0.2-0.9); Monocytes % 5.9 %; Neutrophils # 4.57 10^3/uL (1.8-7.7); Neutrophils % 54.2 %; Nucleated Red Blood Cells % 0 %; Platelet Count 427 10^3/cmm (157-399); Red Cell Distribution Width 13.8 % (12.1-15.1); White Blood Count 8.43 10^3/uL (3.29-11.43)
[2023-05-26] MEDS: ceFAZolin 3,000 MG in sodium chloride 0.9% (100 ml) 100 ML 200 MG IV (15:54)
[2023-05-26 16:16] LABS: Alanine Aminotransferase 26 U/L (0-33); Albumin Level 4.4 g/dL (3.5-5.2); Alkaline Phosphatase 85 U/L (35-105); Anion Gap 17.6 (5-19); Aspartate Amino Transferase 25 U/L (0-32); Blood Urea Nitrogen 12 mg/dL (6-20); Calcium 8.9 mg/dL (8.5-10.5); Carbon Dioxide 26 mmol/L (22-29); Chloride 101 mmol/L (98-107); Globulin 3.2 g/dL (1.3-4.6); Glomerular Filtration Rate 109.1 mL/min (90-130); Glucose 108 mg/dL (65-115); Osmolality Calculated 292 mOsm/kg (285-295); Potassium 3.6 mmol/L (3.5-5.1); Sodium 141 mmol/L (136-145); Total Bilirubin 0.5 mg/dL (0.15-1.2); Total Protein 7.6 g/dL (6.6-8.7)
[2023-05-26] MEDS: lidocaine-epi 2% PF 1:200,000 20 mL SDV INJECTION (16:54)
--- NOTE | 2023-05-26 17:18 | P.OP_ITS ---
Operative Report Date of procedure: May 26, 2023 Pre-op diagnosis: Abnormal uterine bleeding Left ovarian cyst Post-op diagnosis: same Procedure done: Hysteroscopy with dilation and curettage via MyoSure Specimens removed/disposition: Endometrial curettings Surgeon: Michael Rosa MD Estimated blood loss (mL): 50 IV fluids (mL): 400 Complications: None Procedure: After informed consent, the risks included but were not limited to bleeding, infection, injury to internal organs. The patient was counseled on a possible laparotomy and on the potential need for hysterectomy. The patient expressed understanding of the risks involved, all questions were answered, and the patient consented to the procedure. The patient was taken to the operating room where general anesthesia was administered. The diagnostic laparoscopy had not previously been authorized and it was decided to proceed with the hysteroscopy with MyoSure. She was placed in the dorsal lithotomy position and prepped and draped in sterile fashion. A time out procedure was performed. The patient was examined under anesthesia and found to have a normal uterus with normal adnexa. A sterile weight speculum was placed in the vagina. The uterus was then gently sounded to 9 cm, and the cervix was dilated. The 0 degrees MyoSure hysteroscope was advanced gently to the uterine fundus while vis ualizing the monitor. Survey of the uterine cavity showed: Secretory endometrium, the fundus shows secretory endometrium; left ostium was visualized, and lateral wall with secretory in the; right ostium visualized, and lateral wall with secretory endometrium; anterior and posterior coreas are with secretory endometrium; endocervical canal is normal. The MyoSure device was advanced and the direct visualization the endometrium was morcellated without complication. At the end of morcellation the fluid deficit was 500 mL and was estimated at approximately 300 mL were on the floor. There was minimal bleeding noted and the tenaculum removed with goad hemostasis noted. The patient tolerated the procedure well. The patient was taken to the recovery area in stable condition.
[2023-05-26] MEDS: hyDRALAzine 20 mg/mL INJ 1 mL 10 MG IVP (17:50)
--- NOTE | 2023-05-26 19:00 | ANE.PACU2 ---
Inpatient post-anesthesia follow up: Airway intact: Yes Vital signs: Temperature 98.3 F Pulse Rate 86 Respiratory Rate 18 Blood Pressure 166/96 Pulse Oximetry 93 Oxygen Delivery Me thod Room Air Oxygen Flow Rate 6 Fraction of Inspir ed Oxygen Hydration adequate: Yes Nausea and vomiting: No Pain level: 1 Mental status: Baseline
[2023-05-26 21:10] LABS: Glucose Point of Care 102 mg/dL (70-110)
== END 2023-05-26 19:00 | disposition home or self-care (01) ==
PROVIDERS: PCP Electrodiagnostic Medicine; Visit Provider Obstetrics & Gynecology
PROC: 0UDB8ZZ Extraction of Endometrium, Via Natural or Artificial Opening Endoscopic (ICD-10-PCS; CPT 58558; principal; 2023-05-26 15:30)
PROC: (CPT 58120; 2023-05-26 15:30)
DX: N93.9 Abnormal uterine and vaginal bleeding, unspecified (principal); I10 Essential (primary) hypertension; K21.9 Gastro-esophageal reflux disease without esophagitis; E11.9 Type 2 diabetes mellitus without complications; E66.01 Morbid (severe) obesity due to excess calories; Z68.41 Body mass index [BMI] 40.0-44.9, adult; Z79.84 Long term (current) use of oral hypoglycemic drugs
CPT/HCPCS: 58558; 36416; 80053; 81001; 82962; 84703; 85025; 86850; 86900; 88305; J0360; J0690; J1100; J2405; J3010; J3535; J7030; J7040

== ENCOUNTER 2023-05-26 22:59 | Emergency (ER) | payer OTHER, SELFPAY ==
[2023-05-26 23:01] VITALS: RESP 16; TEMP 36.6
[2023-05-27] MEDS: EPINEPHrine 1 mg/mL INJ 0.5 MG IM (00:12)
[2023-05-27] MEDS: diphenhydrAMINE 50 mg/mL SDV 1mL IVP (00:14)
[2023-05-27] MEDS: famotidine 20 mg/2 mL INJ 40 MG IVP (00:15)
[2023-05-27] MEDS: methylPREDNISolone sod succ 125 mg/2 mL INJ IVP (00:19)
[2023-05-27 00:27] VITALS: BP 197/112; PULSE 90; RESP 17; O2SAT 95
--- NOTE | 2023-05-27 00:29 | ED_ITS ---
HPI - Allergic Reaction 2 General: Chief complaint: Allergic Reaction Stated complaint: Alergic Reaction Time Seen by Provider: 05/26/23 23:44 Source: patient Mode of arrival: ambulatory Limitations: no limitations History of Present Illness: HPI narrative: 43-year-old female states she had a D&C today she states that this afternoon she started having a rash to her face along with her extremities she had some mild dyspnea she taken Benadryl and Pepcid at home with no improvement. She denies any severe shortness of breath send no vomiting no diarrhea no fevers. Associated symptoms: Deny abdominal pain, nausea or vomiting Review of Systems 2 Const: Denies: fever(s), chills, body aches or change in appetite ENMT: Denies: throat pain or dental pain Card: Denies: chest pain Resp: Denies: dyspnea GI: Denies: abdominal pain, nausea, vomiting or diarrhea Musc: Denies: neck pain or back pain Skin/Breast: Reports: rash Neuro: Denies: headache(s) PFSH ED 2 PFSH: Medical History Bartholin cyst (~2018) I patient reported history that was suspicious for her originally having a Bartholin's gland abscess. However, at this point, there is no evidence of abscess. All I can find on exam is a mildly enlarged cystic structure in the area of the Bartholin's gland. I discussed with her that a Bartholin's gland cyst does not need to be treated. If, however, it becomes painful or start showing signs of infection, it can be drained or possibly be treated by a marsupialization. Questions were answered No pertinent past medical history neghx: thyroid,dvt/pe PCP: Dr. Cabrera Hypertension Type 2 diabetes mellitus Anxiety with depression Surgical History No pertinent past surgical history Family History Mother Diabetes Hypertension Grandmother Diabetes maternal paternal Stroke paternal Father Diabetes Grandfather Heart disease paternal Family/Other Heart disease paternal uncle Denies family history of Colon cancer Ovarian cancer Hyperlipidemia Breast cancer Uterine cancer Thyroid disease Physical Exam 2 Const: COMMON NORMALS: no acute distress, patient oriented x3 and healthy appearing HENMT: COMMON NORMALS: normocephalic and atraumatic HEAD & SCALP: n ormocephalic and atraumatic Eye: COMMON NORMALS: Equal, round and reactive pupils present PUPIL: Yes Equal, round and reactive pupils present Neck/C-Spine: COMMON NORMALS: full ROM and supple Chest: COMMONS NORMALS: normal inspection of the chest Resp: COMMON NORMALS: normal respiratory effort, No retractions, No use of accessory muscles and clear to auscultation bilaterally AUSCULTATION: clear to auscultation bilaterally Cardio: COMMON NORMALS: regular rate, regular rhythm and No murmurs present (Cardio) RATE: regular rate RHYTHM: regular rhythm Extremity: COMMON NORMALS: normal to inspection and full ROM Neuro: COMMON NORMALS: patient oriented x3, moves all extremities and no focal motor deficits Psych: COMMON NORMALS: mental status grossly normal, Normal thought process present and cooperative THOUGHT PROCESS: Normal thought process present Skin: COMMON NORMALS: no wounds NARRATIVE SKIN EXAM: Macular rash noted to face Course 2 Vital Signs: Vital signs: Vital Signs Temperature 97.9 F 05/26/23 23:01 Pulse Rate 90 05/27/23 00:27 Respiratory Rate 17 05/27/23 00:27 Blood Pressure 197/112 05/27/23 00:27 Pulse Oximetry 95 05/27/23 00:27 Oxygen Delivery Me thod Room Air 05/27/23 00:27 MDM - Allergic Reaction Medical Decision Making Patient presents for allergic reaction her rash is improving here we will place her on 5 days of steroids as well she continue Benadryl at home she is stable for discharge she is follow-up with PCP and return if worsening. Medical Records I reviewed the patient's medical records. Lab Data I reviewed the patient's lab results. 05/27/23 00:35 Laboratory Results WBC 10.32 10^3/uL (3.29-11.43) 05/27/23 00:35 RBC 4.71 10^6/uL (3.85-5.65) 05/27/23 00:35 Hgb 12.60 g/dL (11.27-16.99) 05/27/23 00:35 Hct 39.3 % (36-47) 05/27/23 00:35 MCV 83.4 fl (85-98) L 05/27/23 00:35 MCH 26.8 pg (27-33) L 05/27/23 00:35 MCHC 32.1 g/dL (30-55) 05/27/23 00:35 RDW 14.1 % (12.1-15.1) 05/27/23 00:35 Plt Count 446 10^3/cmm (157-399) H 05/27/23 00:35 MPV 9.0 fL (7.4-10.4) 05/27/23 00:35 Neut % (Auto) 88.7 % 05/27/23 00:35 Lymph % (Auto) 9.7 % 05/27/23 00:35 [place] % (Auto) 1.0 % 05/27/23 00:35 Eos % (Auto) 0.0 % 05/27/23 00:35 Baso % (Auto) 0.1 % 05/27/23 00:35 Neut # (Auto) 9.16 10^3/uL (1.8-7.7) H 05/27/23 00:35 Lymph # (Auto) 1.0 10^3/uL (0.8-4.8) 05/27/23 00:35 [place] # (Auto) 0.1 10^3/uL (0.2-0.9) L 05/27/23 00:35 Eos # (Auto) 0.0 10^3/uL (0.0-0.8) 05/27/23 00:35 Baso # (Auto) 0.0 10^3/uL (0.0-0.1) 05/27/23 00:35 Nucleated RBC % (auto) 0 % 05/27/23 00:35 Nucleated RBCs # 0.0 /100WBC 05/27/23 00:35 No radiology studies performed this visit Discharge Plan Discharge Patient Disposition: Home Clinical Impression: Allergic reaction Condition: Stable Prescriptions: New prednisone 50 mg tablet 40 mg PO DAILY Qty: 5 0RF No Action metoprolol tartrate 25 mg tablet 100 mg PO BID nifedipine 90 mg tablet extended release 90 mg PO QAM Rybelsus 3 mg tablet 3 mg PO QAM metformin 500 mg tablet 500 mg PO BID pantoprazole 40 mg tablet,delayed release (DR/EC) 40 mg PO QAM venlafaxine 150 mg capsule,extended release 24hr 150 mg PO BEDTIME olopatadine 0.1 % drops See Rx Instructions .ROUTE .COMPLEX PRN (Reason: ALLERGIES) Rx Instructions: instill ONE drop into THE affected eye(s) TWICE DAILY PER an interval of 6-8 HOURS albuterol sulfate 90 mcg/actuation HFA aerosol inhaler 1 - 2 puff INHALATION Q4H PRN (Reason: Shortness Of Breath) fluticasone propionate [Flonase Allergy Relief] 50 mcg/actuation spray,suspension 1 - 2 spray intranasal DAILY PRN (Reason: Allergy Symptoms) cetirizine 10 mg tablet 10 mg PO DAILY acetaminophen 325 mg capsule 325 mg PO Q4H PRN (Reason: fever or pain) Qty: 60 0RF ibuprofen 800 mg tablet 800 mg PO TID PRN (Reason: pain) Qty: 60 0RF hydrocodone-acetaminophen 5-325 mg tablet 1 tab PO Q4H PRN (Reason: pain) Qty: 20 0RF Discharge Orders: Discharge ED (Routine); Ordered 05/27/23 Ordered By: Carole Catalan Referrals: Ravi Cabrera DO [Primary Care Provider] - 4-7 days Discharge Diet: Advance as tolerated Discharge Activity: Resume usual activity Patient Instructions: General Allergic Reaction (ED) Coding Level of Care Code ED Printer Operator for Deanna Campos
[2023-05-27] MEDS: labetalol 5 mg/mL SDV 20mL 10 MG IVP (00:32)
[2023-05-27 00:41] LABS: Basophils % 0.1 %; Hematocrit 39.3 % (36-47); Lymphocytes % 9.7 %; Mean Corpuscular HGB Conc 32.1 g/dL (30-55); Mean Corpuscular Hemoglobin 26.8 pg (27-33); Mean Corpuscular Volume 83.4 fl (85-98); Monocytes # 0.1 10^3/uL (0.2-0.9); Neutrophils # 9.16 10^3/uL (1.8-7.7); Neutrophils % 88.7 %; Nucleated Red Blood Cells % 0 %; Platelet Count 446 10^3/cmm (157-399); Red Blood Count 4.71 10^6/uL (3.85-5.65); Red Cell Distribution Width 14.1 % (12.1-15.1); White Blood Count 10.32 10^3/uL (3.29-11.43)
[2023-05-27 01:14] VITALS: BP 147/101; PULSE 86; RESP 18; O2SAT 94
== END 2023-05-27 01:15 | disposition home or self-care (01) ==
PROVIDERS: Emergency Provider Emergency Medicine; PCP Electrodiagnostic Medicine
DX: R21 Rash and other nonspecific skin eruption (principal); T78.40XA Allergy, unspecified, initial encounter; X58.XXXA Exposure to other specified factors, initial encounter; Z79.84 Long term (current) use of oral hypoglycemic drugs; I10 Essential (primary) hypertension; E11.9 Type 2 diabetes mellitus without complications
CPT/HCPCS: 85025; 96372; 96374; 96375; 99284; J0171; J1200; J2930; J3490

== ENCOUNTER → 2023-06-30 07:51 | Outpatient (BNVA) | payer OTHER, SELFPAY | PROVIDERS: PCP Electrodiagnostic Medicine; Visit Provider Obstetrics & Gynecology | DX: R10.2 Pelvic and perineal pain (principal); N83.202 Unspecified ovarian cyst, left side; N83.201 Unspecified ovarian cyst, right side | CPT/HCPCS: 76830 ==

== ENCOUNTER 2023-10-07 12:25 | Outpatient (CLI) | payer OTHER, SELFPAY ==
[2023-10-07 13:04] LABS: Creatinine Urine, Random 257 mg/dL (28-217); Microalbum Creatinine Ratio Ur 8 mg/dL (0-20); Microalbumin Random Urine 2 ug/dL (0-20)
[2023-10-07 13:08] LABS: Estmated Average Glucose 123; Hemoglobin A1C 5.9 % (4.0-6.0)
[2023-10-07 13:16] LABS: Alanine Aminotransferase 13 U/L (0-33); Albumin Level 3.8 g/dL (3.5-5.2); Alkaline Phosphatase 72 U/L (35-105); Anion Gap 16.6 (5-19); Aspartate Amino Transferase 11 U/L (0-32); Blood Urea Nitrogen 16 mg/dL (6-20); Carbon Dioxide 24 mmol/L (22-29); Chloride 100 mmol/L (98-107); Cholesterol 174 mg/dL (0-200); Globulin 3.3 g/dL (1.3-4.6); Glomerular Filtration Rate 109.1 mL/min (90-130); Glucose 97 mg/dL (65-115); HDL Cholesterol 37 mg/dL (60-100); LDL Cholesterol Calculated 108 mg/dL (50-129); LDL HDL Ratio 2.92 RATIO (0.00-3.22); Osmolality Calculated 285 mOsm/kg (285-295); Potassium 3.6 mmol/L (3.5-5.1); Sodium 137 mmol/L (136-145); Total Bilirubin 0.2 mg/dL (0.15-1.2); Total Protein 7.1 g/dL (6.6-8.7); Triglycerides 146 mg/dL (0-150)
== END 2023-10-07 12:26 | disposition home or self-care (01) ==
LOC: LAB 12:27
PROVIDERS: PCP Electrodiagnostic Medicine; Visit Provider Internal Medicine
DX: E11.9 Type 2 diabetes mellitus without complications (principal); I10 Essential (primary) hypertension
CPT/HCPCS: 36415; 80053; 80061; 82044; 83036

== ENCOUNTER 2023-11-03 12:53 | Observation (INO) | payer OTHER, SELFPAY ==
--- NOTE | 2023-10-26 09:31 | P.ANESASSM_ITS ---
Pre-Anesthetic Assessment Height/Weight: Height 1.65 m Operation Date: 11/03/23 08:15 Proposed Procedures p Laparoscopic Ovarian Cystectomy 25499, N83.202(Not Applicable) - Michael Rosa MD Familial anesthetic complications: None Was Beta Perla taken within 24 hours: N/A Was Clonidine taken within 24 hours: N/A Last intake: > 8 hrs Social No alcohol and No tobacco Exam alert, oriented x 3, clear to auscultation bilaterally and regular rate & rhythm Airway Mallampati: Class III Dentition: full Pulmonary Asthma CV/HEM Hypertension Metabolic Diabetes Mellitus Anesthetic Plan ASA status: 3 Anesthesia: General Risk of > 500 ml blood loss (7ml/kg in children): No Medications/Allergies Home Medications Medication Instructions Recorded Confirmed Last Taken Type metoprolol tartrate 25 mg tablet 100 mg PO BID 12/28/19 10/26/23 10/26/23 History nifedipine 90 mg tablet,extended 90 mg PO QAM 09/17/22 10/26/23 10/26/23 History release pantoprazole 40 mg tablet,delayed 40 mg PO QAM 09/17/22 10/26/23 10/26/23 History release venlafaxine 150 mg 150 mg PO BEDTIME 09/17/22 10/26/23 10/25/23 History capsule,extended release 24 hr albuterol sulfate 90 mcg/actuation 1 - 2 puff inhalation Q4H PRN 03/20/23 10/26/23 05/24/23 History aerosol inhaler Shortness Of Breath cetirizine 10 mg tablet 10 mg PO DAILY 05/21/23 10/26/23 10/26/23 History acetaminophen 325 mg capsule 325 mg PO Q4H PRN fever or pain 05/26/23 10/26/23 10/24/23 Rx #60 caps fluticasone 100 mcg-salmeterol 50 2 inh inhalation BID 06/09/23 10/26/23 10/26/23 History mcg/dose blistr powdr for inhalation (Advair Diskus) tirzepatide 10 mg/0.5 mL 10 mg (0.5 mL) SUBCUT Q7D 1 month 10/14/23 10/26/23 10/22/23 Rx subcutaneous pen injector #2 mL (Denise) Allergies Allergy/AdvReac Type Severity Reaction Status Date / Time budesonide [From Symbicort] Allergy ALGY-Anaphy Verified 10/26/23 07:48 laxis formoterol [From Symbicort] Allergy ALGY-Anaphy Verified 10/26/23 07:48 laxis lisinopril Allergy ALGY-Anaphy Verified 10/26/23 07:48 laxis Sulfa (Sulfonamide Allergy RASH Verified 10/26/23 07:48 Antibiotics) [facility] Anesthesia Medical History Bartholin cyst (~2018) I patient reported history that was suspicious for her originally having a Bartholin's gland abscess. However, at this point, there is no evidence of abscess. All I can find on exam is a mildly enlarged cystic structure in the area of the Bartholin's gland. I discussed with her that a Bartholin's gland cyst does not need to be treated. If, however, it becomes painful or start showing signs of infection, it can be drained or possibly be treated by a marsupialization. Questions were answered No pertinent past medical history neghx: thyroid,dvt/pe PCP: Dr. Cabrera Hypertension Type 2 diabetes mellitus Anxiety with depression Surgical History History of hysteroscopy (~05/26/23) Hysteroscopy with D&C via myosure. Proliferative endometrium with benign polyp; no malignancy. Performed by Moe at [facility]. Family History Mother Diabetes Hypertension Grandmother Diabetes maternal paternal Stroke paternal Father Diabetes Grandfather Heart disease paternal Family/Other Heart disease paternal uncle Denies family history of Colon cancer Ovarian cancer Hyperlipidemia Breast cancer Uterine cancer Thyroid disease Social History Smoking and tobacco/nicotine status: never used tobacco/nicotine Data Anesthesia 10/26/23 09:21 10/26/23 09:21 Cardiac Studies: 2 No Data to Display
[2023-10-26 09:33] LABS: Basophils # 0.1 10^3/uL (0.0-0.1); Basophils % 0.8 %; Eosinophils # 0.4 10^3/uL (0.0-0.8); Eosinophils % 4.5 %; Hematocrit 41.8 % (36-47); Mean Corpuscular HGB Conc 33.5 g/dL (30-55); Mean Corpuscular Volume 80.7 fl (85-98); Monocytes # 0.6 10^3/uL (0.2-0.9); Monocytes % 6.1 %; Neutrophils # 5.77 10^3/uL (1.8-7.7); Neutrophils % 58.3 %; Nucleated Red Blood Cells % 0 %; Platelet Count 439 10^3/cmm (157-399); Red Blood Count 5.18 10^6/uL (3.85-5.65); Red Cell Distribution Width 14.4 % (12.1-15.1); White Blood Count 9.88 10^3/uL (3.29-11.43)
[2023-10-26 10:20] LABS: Alanine Aminotransferase 16 U/L (0-33); Albumin Level 4.2 g/dL (3.5-5.2); Alkaline Phosphatase 87 U/L (35-105); Anion Gap 17.6 (5-19); Aspartate Amino Transferase 12 U/L (0-32); Blood Urea Nitrogen 16 mg/dL (6-20); Calcium 8.7 mg/dL (8.5-10.5); Carbon Dioxide 21 mmol/L (22-29); Chloride 103 mmol/L (98-107); Globulin 3.2 g/dL (1.3-4.6); Glomerular Filtration Rate 91.3 mL/min (90-130); Glucose 130 mg/dL (65-115); Osmolality Calculated 289 mOsm/kg (285-295); Potassium 3.6 mmol/L (3.5-5.1); Sodium 138 mmol/L (136-145); Total Bilirubin 0.2 mg/dL (0.15-1.2); Total Protein 7.4 g/dL (6.6-8.7)
[2023-10-26 11:15] LABS: Add Urine Microscopic? YES; Bilirubin Urine Neg (Negative); Blood Urine 2+ (Negative); Glucose Urine UA Norm (Normal); Ketones Urine 1+ (Negative); Leukocyte Esterase Urine 2+ (Negative); Nitrate Urine Negative (Negative); Protein Urine Trace (Negative); Urine Appearance Clear (CLEAR); Urine Color Yellow (Yellow); Urobilinogen Urine Norm (Negative); WBC Urine 0-4 /hpf (0-5); pH Urine 5 (5-7)
[2023-10-26 11:16] LABS: Add Urine Culture? No; Bacteria Urine TRACE /hpf; Squamous Epithelial Cell Urine 0-4 /hpf (0-5)
[2023-11-03] VITALS (17 sets, daily range): BP systolic 116–188; BP diastolic 72–118; PULSE 66–102; RESP 16–19; TEMP 36.3–36.9; O2SAT 90–97; BMI 43.7; BMI 47.0
[2023-11-03 07:42] LABS: OR HCG Qualitative Urine Negative (Negative)
[2023-11-03 08:21] LABS: Glucose Point of Care 128 mg/dL (70-110)
[2023-11-03] MEDS: sodium chloride 0.9% 500 ML IV (08:26)
--- NOTE | 2023-11-03 08:27 | P.ANESUD_ITS ---
Pre-Anesthetic Update Pre-Anesthetic Assessment: Date of Surgery/Procedure: 11/03/23 Preop Cynthia gnosis: left ovarian mass Proposed Procedure: Operation Date: 11/03/23 08:55 Proposed Procedures p Laparoscopic Ovarian Cystectomy 16604, N83.202(Not Applicable) - Michael Rosa MD Any changes to Pre-Anesthetic Assessment?: No Last Intake: Intake Last Liquid Date 11/02/23 Last Liquid Time 21:30 Last Solid Date 11/02/23 Last Solid Time 21:30 Vitals: Temperature 98.1 F 11/03/23 07:45 Temperature Source Temporal Artery S can 11/03/23 07:45 Pulse Rate 81 11/03/23 07:45 Respiratory Rate 16 11/03/23 07:45 Blood Pressure 161/111 11/03/23 07:45 Blood Pressure Nichole n 127 11/03/23 07:45 Pulse Oximetry 97 11/03/23 07:45 Oxygen Delivery Me thod Room Air 11/03/23 07:45 Exam: Pre-Anes Outpt Exam: alert, oriented x 3, clear to auscultation bilaterally and regular rate & rhythm Cardiac Studies: No Data to Display
[2023-11-03] MEDS: scopolamine 1.5 Patch 1 PATCH TRANSDERMA (08:28)
--- NOTE | 2023-11-03 08:35 | W.PM.OPSUD ---
Surgery/Procedure H&P Update DATE OF PROCEDURE: November 03, 2023 DATE H&P PERFORMED: 10/26/23 H&P UPDATE INFORMATION: I have reviewed H&P completed within last 30 days, I have examined patient prior to procedure and No changes to prior documentation PREOP DIAGNOSIS: left ovarian mass PLANNED PROCEDURE: Operation Date: 11/03/23 08:55 Proposed Procedures p Laparoscopic Ovarian Cystectomy 98399, N83.202(Not Applicable) - Michael Rosa MD
[2023-11-03] MEDS: midazolam 1 mg/mL INJ 2 mL 2 MG IVP (08:38)
[2023-11-03] MEDS: sodium chloride 0.9% 1,000 ML 30 ML IV (08:44)
[2023-11-03] MEDS: ceFAZolin 2,000 mg SDV 3000 MG IVP (09:25)
[2023-11-03] MEDS: BUPivacaine 0.5% INJ 10 mL INJECTION (09:41)
[2023-11-03] MEDS: sodium chloride 0.9% 100 mL Bag XX (11:25)
[2023-11-03] MEDS: BUPivacaine 0.5% INJ 10 mL 20 ML INJECTION (11:25)
[2023-11-03] MEDS: BUPivacaine liposome 13.3 mg/mL SDV 20 mL 266 MG INFILTRATI (11:25)
--- NOTE | 2023-11-03 11:32 | P.BOP_ITS ---
Date of Procedure: 11/03/2023 Surgeon: Michael Rosa MD Ambulatory Care(s): Procedure(s) performed: Laparoscopic cystectomy converted to open oophorectomy Findings of the procedure(s): Ovary, ovarian cyst, multiple adhesions Estimated blood loss: 230 mL Specimen(s) removed: Left ovary with ovarian cyst Capsule Post-operative diagnosis: Left ovarian cyst/mass with multiple adhesions
--- NOTE | 2023-11-03 11:36 | P.OP_ITS ---
Operative Report Date of procedure: November 03, 2023 Pre-op diagnosis: Left ovarian cystic mass Post-op diagnosis: same Post-op diagnosis: Left ovarian cyst Multiple adhesions on left pelvic Post-op findings: multiple adhesions to the left pelvic wall involving ovary, cyst and bowel. Procedure done: Diagnostic laparoscopy Laparotomy Left oophorectomy Ovarian cystectomy Lysis of adhesion Specimens removed/disposition: Left ovary Left ovary cyst wall/capsule Surgeon: Michael Rosa MD Estimated blood loss (mL): 230 IV fluids (mL): 1,900 Urine output (mL): 300 Complications: Multiple adhesions Findings: Normal size uterus, normal size right ovary and fallopian tube. Enlarged left ovary with multiple cyst, left partial salpingectomy Multiple dense adhesions to pelvic sidewall involving bowel Procedure: Risks, benefits, indications, and alternatives for management of pelvic pain were discussed in the office in great detail with the patient. Patient elected to have a laparoscopic cystectomy/oophorectomy. Patient was taken to the operating room where anesthesia was obtained without any difficulty. Patient was prepped and draped in normal sterile fashion in dorsal lithotomy position. A De La Vega catheter was placed. A sterile speculum was placed in the patient's vagina. The anterior lip of the cervix was grasped with a single-tooth tenaculum. A HUMI uterine manipulator was then advanced into the uterus to provide a means to manipulate the uterus. The speculum was then removed from the patient's vagina. Attention was then turned to the patient's abdomen where a 5 mm skin incision was made in the umbilical fold. A Veress needle was carefully introduced into the peritoneal cavity at a 45 degree angle while tenting the abdominal wall. Intraperitoneal placement was confirmed by the use of water drop and intraabdominal pressure with insufflation of carbon dioxide gas. A trocar and sleeve were then advanced without difficulty into the abdomen where intraabdominal placement was confirmed by the laparoscope. Pneumoperitoneum was obtained with 4 L of carbon dioxide gas, and a 5 mm trocar and sleeve were then advanced without difficulty into the abdomen where intraabdominal placement was confirmed by the laparoscope. A second incision was made at the lower quadrant, and a second trocar and sleeve were then advanced under direct visualization into the abdomen. Upon visualization with the laparoscope, significant adhesions over the left ovary involving the large intestine were noted. Due to the significant adhesions, the decision was made to convert to an abdominal hysterectomy. Patient was placed in supine position. A Pfannenstiel incision was made 2 cm above the symphysis pubis and extended sharply to the rectus fascia. The fascial incision was bilaterally incised with curved Yap scissors, and the rectus sheath was superiorly and interiorly by sharp and blunt dissection. The peritoneum was grasped between two Vera clamps, elevated, and incised with a scalpel. The pelvis was examined with the findings noted above and the abdomen was thoroughly explored. An Paramjit self-retaining retractor was placed into the incision, and the bowel was packed away with moist laparotomy sponges. The suspensory ligament of the left ovary was anchored with a Fan clamp. The ovarian adhesions were carefully dissected with the Metzenbaum scissors near the base of the cyst. With tissue forceps the ovarian capsule was elevated with small Metzenbaum scissors the alveolar tissue between the cyst and the ovarian capsule was dissected while the margins of the capsule were held with Allis clamps. The ovary was completely dissected via sharp and hydrodissection. Hemostasis within the bed of the ovary was control by electrocoagulation of sm all bleeders. The ovary was grasped with [place] clamps then then and the infundibulopelvic ligament with the LigaSure device it was clamped, sealed and cut and the ovary was sent for pathology evaluation. The pelvis was copiously irrigated with warm normal saline, and all sponges and instruments were removed. The parietal peritoneum was closed with running #2-0 Vicryl. The first catheter for the Ambu pain management pump was placed without complications. The fascia was closed with running #0 Vicryl. Then the second catheter for the Ambu pain management pump was placed without complication. Subcuticular tissue was closed with plain gut in a running fashion. The incision area was infiltrated by Exparel for pain management. The skin was closed with Insorb?s subcuticular absorbable abby. Sponge, lap, needle, and instrument counts were correct times three. The patient was taken to the recovery room, awake and in stable condition. The patient tolerated the procedure well. Sponge, lap, and needle counts were correct x2. The patient was returned to the post anesthesia care unit in stable condition.
--- NOTE | 2023-11-03 11:55 | ANE.PACU2 ---
Inpatient post-anesthesia follow up: Airway intact: Yes Vital signs: Temperature 97.3 F Pulse Rate 98 Respiratory Rate 16 Blood Pressure 183/94 Pulse Oximetry 90 Oxygen Delivery Me thod Room Air Oxygen Flow Rate 10 Fraction of Inspir ed Oxygen Hydration adequate: Yes Nausea and vomiting: No Pain level: 1 Mental status: Baseline
[2023-11-03] MEDS: fentaNYL 50 mcg/mL INJ 2mL IVP (12:30)
[2023-11-03] MEDS: dextrose 5%-lactated ringers 1,000 ML 125 ML IV ×2 (14:13→20:49)
[2023-11-03] MEDS: ketorolac 30 mg/mL INJ IVP ×2 (14:19→19:34)
[2023-11-03] MEDS: HYDROcodone-acetaminophen 5-325 mg Tablet PO ×2 (15:27→20:49)
[2023-11-03] MEDS: metoprolol tartrate 50 mg Tablet 100 MG PO (17:19)
[2023-11-03] MEDS: docusate sodium 100 mg Capsule PO (17:21)
[2023-11-03] MEDS: venlafaxine ER (24HR) 150 mg Capsule PO (20:46)
[2023-11-04] MEDS: ketorolac 30 mg/mL INJ IVP ×2 (01:21→09:22)
[2023-11-04 04:57] VITALS: BP 130/75; PULSE 69; RESP 18; TEMP 36.7; O2SAT 95
[2023-11-04] MEDS: pantoprazole DR 40 mg Tablet PO (05:18)
[2023-11-04] MEDS: NIFEdipine ER (24 hr) 30 mg Tablet 90 MG PO (05:18)
[2023-11-04] MEDS: HYDROcodone-acetaminophen 5-325 mg Tablet PO ×3 (05:19→18:08)
[2023-11-04] MEDS: dextrose 5%-lactated ringers 1,000 ML 125 ML IV ×3 (05:20→22:27)
[2023-11-04 06:04] LABS: Hematocrit 36.1 % (36-47); Mean Corpuscular HGB Conc 32.1 g/dL (30-55); Mean Corpuscular Hemoglobin 26.8 pg (27-33); Mean Corpuscular Volume 83.4 fl (85-98); Mean Platelet Volume 9.3 fL (7.4-10.4); Platelet Count 357 10^3/cmm (157-399); Red Blood Count 4.33 10^6/uL (3.85-5.65); Red Cell Distribution Width 14.7 % (12.1-15.1); White Blood Count 11.72 10^3/uL (3.29-11.43)
--- NOTE | 2023-11-04 06:19 | PC.NURSE ---
Removed perez catheter at 0610 per protocol. Patient has been ambulating in the lugo with minimal discomfort. Pain is well controlled.
[2023-11-04 07:33] VITALS: BP 171/100; PULSE 78; RESP 17; TEMP 36.8; O2SAT 93
[2023-11-04] MEDS: cetirizine 10 mg Tablet PO (09:23)
[2023-11-04] MEDS: docusate sodium 100 mg Capsule PO ×2 (09:23→17:47)
[2023-11-04] MEDS: metoprolol tartrate 50 mg Tablet 100 MG PO ×2 (09:23→17:47)
--- NOTE | 2023-11-04 09:35 | P.PN_ITS ---
Subjective 2 Subjective: Mrs. Martinez 43-year-old female with left cystic ovarian mass. Refers some abdominal incisional pain. Vitals/I&O/Wt Last Vital Signs Temp 98.2 F 11/04/23 07:33 Pulse 78 11/04/23 07:33 Resp 17 11/04/23 07:33 BP 171/100 11/04/23 07:33 Pulse Ox 93 11/04/23 07:33 O2 Del Method Room Air 11/04/23 07:33 O2 Flow Rate 4 11/03/23 12:56 11/03/23 11/04/23 11/04/23 22:59 06:59 14:59 Intake Total 2185 / 4585 1000 / 5585 240 / 240 Output Total 2350 / 3280 750 / 4030 Balance -165 / 1305 250 / 1555 240 / 240 Weight last 48 hrs Weight 128.82 kg Weight 128.14 kg Weight 119.295 kg Physical Exam 2 Narrative: GA: Alert and oriented ?3. HEENT: WNL. Heart: Regular rate and rhythm. Lungs: Clear to auscultation bilaterally. Abdomen: Bowel sounds present, nontender, minimal tenderness, incision clean and dry, no redness, pain or edema. 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 Extremities: No edema, no cyanosis, no calves pain. Urinary Catheter Management: De La Vega: Cath Placed During This Visit: yes Urinary Catheter Date of Insertion: 11/03/23 Urinary Catheter Time of Insertion: 09:30 Data 11/04/23 05:34 10/26/23 09:21 A&P Assessment and plan (1) Status post laparotomy with lysis of adhesions: Mrs. Martinez 43-year-old female G0, P0 with a history of left cystic ovarian mass. Admitted for planned laparoscopic cystectomy. Due to adhesions the case was converted to an open laparotomy, and left oophorectomy was performed with extensive lysis of adhesions to the left pelvic sidewall. She is postoperative day 1. She is afebrile and hemodynamically stable. (2) Status post left oophorectomy: Plan Continue postop observation Attestations 2 Medical Necessity Statement*: In my professional opinion per admitting diagnosis Coding Level of Care Code Acute Code for Chg Fwd Diagnoses Status post laparotomy with lysis of adhesions Z98.890 Status post left oophorectomy Z90.721
[2023-11-04 11:18] VITALS: BP 158/100; PULSE 69; RESP 18; TEMP 36.4; O2SAT 94
[2023-11-04] MEDS: ibuprofen 800 mg tablet PO ×2 (12:07→18:59)
[2023-11-04 16:18] VITALS: BP 168/89; PULSE 67; RESP 17; TEMP 36.7; O2SAT 92
[2023-11-04] MEDS: acetaminophen 325 mg Tablet PO (20:10)
[2023-11-04] MEDS: venlafaxine ER (24HR) 150 mg Capsule PO (20:11)
[2023-11-04 20:37] VITALS: BP 142/80; PULSE 68; RESP 17; TEMP 36.8; O2SAT 93
[2023-11-05] VITALS: BP 173/104; PULSE 68; RESP 18; TEMP 36.5; O2SAT 91
[2023-11-05] MEDS: HYDROcodone-acetaminophen 5-325 mg Tablet PO ×3 (00:31→09:36)
[2023-11-05] MEDS: ibuprofen 800 mg tablet PO ×2 (03:14→11:56)
[2023-11-05 04:00] VITALS: BP 154/88; PULSE 69; RESP 20; TEMP 36.6; O2SAT 91
[2023-11-05] MEDS: dextrose 5%-lactated ringers 1,000 ML 125 ML IV (05:27)
[2023-11-05] MEDS: pantoprazole DR 40 mg Tablet PO (05:27)
[2023-11-05] MEDS: NIFEdipine ER (24 hr) 30 mg Tablet 90 MG PO (05:27)
[2023-11-05] MEDS: docusate sodium 100 mg Capsule PO (09:34)
[2023-11-05] MEDS: cetirizine 10 mg Tablet PO (09:34)
[2023-11-05] MEDS: metoprolol tartrate 50 mg Tablet 100 MG PO (09:35)
[2023-11-05 11:20] VITALS: BP 166/90; PULSE 74; RESP 17; TEMP 36.4; O2SAT 90
--- NOTE | 2023-11-05 12:37 | PM.OBGYDC ---
Discharge Providers SKIN LAP BONDER Date of Admission: 11/03/23 12:53 Date of Discharge: 11/05/23 Attending Provider at Admission: Michael Rosa MD Attending Provider at Discharge: Michael Rosa MD Primary Care Provider: Ravi Cabrera DO Diagnoses at Discharge Discharge Diagnosis (1) Status post laparotomy with lysis of adhesions: Status: Acute (2) Status post left oophorectomy: Status: Acute Reason for Visit Reason for Visit: N83.202 Hospital Course Hospital Course Mrs. Martinez 43-year-old female G0, P0 with a history of persistent left cystic ovarian mass. Admitted for planned laparoscopic left cystectomy. However due to extensive left-sided pelvic adhesions involving bowel, the case was converted to an open laparotomy and left oophorectomy with cyst would not remove. Postop observation uneventful. She is afebrile and hemodynamically stable postoperative day 2. Tolerating diet well. Ambulating without difficulty. She was counseled regarding weight lifting limitations to 10 pounds, and pelvic rest for 6 weeks (no sex, no tampons, no vaginal douches). Return to the emergency room if any fever, increased bleeding or pain. Physical Exam Narrative: GA: Alert and oriented ?3. HEENT: WNL. Heart: Regular rate and rhythm. Lungs: Clear to auscultation bilaterally. Abdomen: Bowel sounds present, nontender, minimal tenderness, incision clean and dry, no redness, pain or edema. CUT OUT STITCHER: spotting bleeding. Extremities: No edema, no cyanosis, no calves pain. Urinary Catheter Management: De La Vega: Cath Placed During This Visit: yes Urinary Catheter Date of Insertion: 11/03/23 Urinary Catheter Time of Insertion: 09:30 History History History 0 Term 0 Miscarriages/Ectopic Living Children Discharge Data Studies Completed and Pending Pending at discharge Category Date Time Status Pathology: Surgical [PTH] Routine Pth 11/03/23 11:33 Received Laboratory Results WBC 11.72 10^3/uL (3.29-11.43) H 11/04/23 05:34 RBC 4.33 10^6/uL (3.85-5.65) 11/04/23 05:34 Hgb 11.60 g/dL (11.27-16.99) 11/04/23 05:34 Hct 36.1 % (36-47) 11/04/23 05:34 MCV 83.4 fl (85-98) L 11/04/23 05:34 MCH 26.8 pg (27-33) L 11/04/23 05:34 MCHC 32.1 g/dL (30-55) 11/04/23 05:34 RDW 14.7 % (12.1-15.1) 11/04/23 05:34 Plt Count 357 10^3/cmm (157-399) 11/04/23 05:34 MPV 9.3 fL (7.4-10.4) 11/04/23 05:34 Neut % (Auto) 58.3 % 10/26/23 09:21 Lymph % (Auto) 30.0 % 10/26/23 09:21 [place] % (Auto) 6.1 % 10/26/23 09:21 Eos % (Auto) 4.5 % 10/26/23 09:21 Baso % (Auto) 0.8 % 10/26/23 09:21 Neut # (Auto) 5.77 10^3/uL (1.8-7.7) 10/26/23 09:21 Lymph # (Auto) 3.0 10^3/uL (0.8-4.8) 10/26/23 09:21 [place] # (Auto) 0.6 10^3/uL (0.2-0.9) 10/26/23 09:21 Eos # (Auto) 0.4 10^3/uL (0.0-0.8) 10/26/23 09:21 Baso # (Auto) 0.1 10^3/uL (0.0-0.1) 10/26/23 09:21 Nucleated RBC % (auto) 0 % 10/26/23 09:21 Nucleated RBCs # 0.0 /100WBC 10/26/23 09:21 Sodium 138 mmol/L (136-145) 10/26/23 09:21 Potassium 3.6 mmol/L (3.5-5.1) 10/26/23 09:21 Chloride 103 mmol/L (98-107) 10/26/23 09:21 Carbon Dioxide 21 mmol/L (22-29) L 10/26/23 09:21 Anion Gap 17.6 (5-19) 10/26/23 09:21 BUN 16 mg/dL (6-20) 10/26/23 09:21 Creatinine 0.7 mg/dL (0.5-0.9) 10/26/23 09:21 GFR Calculation 91.3 mL/min (90-130) 10/26/23 09:21 Glucose 130 mg/dL (65-115) H 10/26/23 09:21 POC Glucose 128 mg/dL (70-110) H 11/03/23 08:11 Calculated Osmolality 289 mOsm/kg (285-295) 10/26/23 09:21 Calcium 8.7 mg/dL (8.5-10.5) 10/26/23 09:21 Total Bilirubin 0.2 mg/dL (0.15-1.2) 10/26/23 09:21 AST 12 U/L (0-32) 10/26/23 09:21 ALT 16 U/L (0-33) 10/26/23 09:21 Alkaline Phosphatase 87 U/L (35-105) 10/26/23 09:21 Total Protein 7.4 g/dL (6.6-8.7) 10/26/23 09:21 Albumin 4.2 g/dL (3.5-5.2) 10/26/23 09:21 Globulin 3.2 g/dL (1.3-4.6) 10/26/23 09:21 Urine Color Yellow (Yellow) 10/26/23 09:21 Urine Appearance Clear (CLEAR) 10/26/23 09:21 Urine pH 5 (5-7) 10/26/23 09:21 Ur Specific [place] 1.020 (1.005-1.030) 10/26/23 09:21 Urine Protein Trace (Negative) 10/26/23 09:21 Urine Glucose (UA) Norm (Normal) 10/26/23 09:21 Urine Ketones 1+ (Negative) H 10/26/23 09:21 Urine Blood 2+ (Negative) H 10/26/23 09:21 Urine Nitrate Negative (Negative) 10/26/23 09:21 Urine Bilirubin Neg (Negative) 10/26/23 09:21 Urine Urobilinogen Norm mg/dL (Negative) 10/26/23 09:21 Ur Leukocyte Esterase 2+ (Negative) H 10/26/23 09:21 Urine RBC None /hpf (0-2) 10/26/23 09:21 Urine WBC 0-4 /hpf (0-5) H 10/26/23 09:21 Ur Squamous Epith Cells 0-4 /hpf (0-5) H 10/26/23 09:21 Amorphous Sediment Not Reportable 10/26/23 09:21 Urine Bacteria Trace /hpf (NONE) 10/26/23 09:21 Urine HCG, Qual Negative (Negative) 11/03/23 07:40 Blood Type B Negative 11/03/23 08:10 Rho(D) Type Rh negative 11/03/23 08:10 Antibody Screen Negative 11/03/23 08:10 Vitals Last Vital Signs Temp 97.5 F L 11/05/23 11:20 Pulse 74 11/05/23 11:20 Resp 17 11/05/23 11:20 BP 166/90 11/05/23 11:20 Pulse Ox 90 11/05/23 11:20 O2 Del Method Room Air 11/05/23 11:20 O2 Flow Rate 4 11/03/23 12:56 Results Labs OB ([facility]): Blood Type B Negative 11/03/23 Antibody Screen Negative 11/03/23 Hct 36.1 % (36-47) 11/04/23 Hgb 11.60 g/dL (11.27-16.99) 11/04/23 Rho(D) Type Rh negative 11/03/23 Plt Count 357 10^3/cmm (157-399) 11/04/23 Hep Bs Antibody 3.5 (11.5-1000) L 12/06/21 Rubella IgG Antibody 314.0 IU/mL (0.0-10.0) H 12/06/21 TSH 0.76 uIU/mL (0.27-4.20) 09/17/22 Hemoglobin A1c 5.9 % (4.0-6.0) 10/07/23 VZV IgG Antibody 963.30 index 12/06/21 FSH 7.5 mIU/mL 01/15/23 Ser , Semi-Qnt 1.00 mIU/mL 09/17/22 HCG, Qual Negative (Negative) 11/20/22 Pap Smear Interpret See note A 10/17/22 Free Testosterone 0.8 pg/mL (0.2-5.0) 09/17/22 Prolactin 15.15 ng/mL (4.8-23.3) 09/17/22 Discharge Plan Discharge Patient Disposition: Home Condition: Stable Prescriptions: New hydrocodone-acetaminophen 5-325 mg tablet 1 tab PO Q4H PRN (Reason: pain) Qty: 30 0RF acetaminophen 325 mg capsule 325 mg PO Q4H PRN (Reason: fever or postoperative pain) Qty: 60 0RF docusate sodium [Colace] 100 mg capsule 100 mg PO BID Qty: 60 0RF ibuprofen 800 mg tablet 800 mg PO TID PRN (Reason: pain) Qty: 60 0RF Continued metoprolol tartrate 25 mg tablet 100 mg PO BID Mounjaro 10 mg/0.5 mL pen injector 10 mg SUBCUT Q7D 30 Days Qty: 2 0RF Rx Instructions: take 10mg weekly for one month nifedipine 90 mg tablet extended release 90 mg PO QAM pantoprazole 40 mg tablet,delayed release (DR/EC) 40 mg PO QAM venlafaxine 150 mg capsule,extended release 24hr 150 mg PO BEDTIME fluticasone propion-salmeterol [Advair Diskus] 100-50 mcg/dose blister with device 2 inh inhalation BID albuterol sulfate 90 mcg/actuation HFA aerosol inhaler 1 - 2 puff INHALATION Q4H PRN (Reason: Shortness Of Breath) cetirizine 10 mg tablet 10 mg PO DAILY acetaminophen 325 mg capsule 325 mg PO Q4H PRN (Reason: fever or pain) Qty: 60 0RF Discharge Orders: Discharge Order (Routine); Ordered 11/05/23 Ordered By: Michael Rosa Referrals: Michael Rosa MD [Physician] - 11/17/23 8:30 am Ravi Cabrera DO [Primary Care Provider] - 11/11/23 3:20 pm Discharge Diet: Usual diet Discharge Activity: Limit activity as instructed Patient Instructions: Laparoscopy, Acute Wound Care (DC), Salpingo-Oophorectomy (GEN), Exploratory Laparotomy (GEN), Opioid Safety, Post Anesthesia Care Activity Restrictions/Additional Instructions: 1. Please call [facility] clinic on next working day to make your post-operative appointment in 2 weeks. 2. Please stay home until you come back to the clinic on first post-hospatilization check up. 3. Please follow instructions on your medications CAREFULLY. 4. If you have abdominal incision, do not cover it unless dressing is necessary because of drainage. OK to shower, but avoid bath. Leave steri-strips until they fall off. If they are still on one week after surgery, you may remove them. 5. If you had vaginal surgery or vaginal repair, Dr. Rosa may instruct you to take SITZ bath. 6. Yellow, blood tinged odorous vaginal discharge is usually normal after hysterectomy or vaginal surgeries. 7. No SEXUAL INTERCOURSE, tampons, or douches until you are completely released from the post-operative care. 8. Avoid constipation by eating right and maybe using some Metamucil or Milk of Magnesia. 9. All prescription refills are given during the working hours. Please do no wait till it runs out. Call the clinic at [phone] before your medication runs out. The clinic will get in touch with your doctor to prescribe medications if necessary. 10. Please remain within 40 mile radius from our hospital because emergencies do happen now and then during the post-operative period. 11. If you have stairs at home, take one step at a time slowly and minimize the number of trips. It helps to stay in one floor for the next few days. No lifting except what you can lift by one hand until you are released from the post-operative care. 12. Driving is discouraged until you are well healed. It may be 3-4 weeks before you feel strong enough to drive. You should be able to turn and look through the rear window without pain and you should be able to push the brake pedal very hard without pain before you drive. No fast rules, but SAFETY should be your primary concern. DO NOT drive if you are on sedating medications such as narcotics. 13. Call the clinic (during working hours) to make urgent appointment or go to the Emergency room, if any of the following occurs: i. Vaginal bleeding becomes heavy, more than a period. ii. Incision becomes red and sore, or drains pus. iii. Your TEMPERATURE is over 100.4F or you have chill. iv. IV site becomes red and swollen (a little ``knot?? is usually OK) v. Persistent nausea and vomiting vi. Persistent constipation or diarrhea vii. Rash or allergic reaction to medications. Discharge Attestations SKIN LAP BONDER Time Spent in Discharge Care*: greater than 30 min Coding Level of Care Code Acute Code for Chg Fwd Diagnoses Status post laparotomy with lysis of adhesions Z98.890 Status post left oophorectomy Z90.721
[2023-11-05 13:51] VITALS: BP 166/90; PULSE 74; RESP 17; TEMP 36.4; O2SAT 90
== END 2023-11-05 13:54 | disposition home or self-care (01) ==
LOC: MEDSURG 12:53
PROVIDERS: Anesthesiology; Admitting Provider Obstetrics & Gynecology; PCP Electrodiagnostic Medicine; Visit Provider Obstetrics & Gynecology
PROC: (CPT 58662; principal; 2023-11-03 08:55)
PROC: (CPT 58940; 2023-11-03 08:55)
DX: D27.1 Benign neoplasm of left ovary (principal); N73.6 Female pelvic peritoneal adhesions (postinfective); Z53.31 Laparoscopic surgical procedure converted to open procedure; J45.909 Unspecified asthma, uncomplicated; I10 Essential (primary) hypertension; E11.9 Type 2 diabetes mellitus without complications
CPT/HCPCS: 58940; 36415; 36416; 80053; 81001; 81025; 82962; 85025; 85027; 86850; 86900; 88305; C9290; G0378; J0360; J0690; J1100; J1170; J1885; J1940; J2250; J2405; J2704; J3010; J3490; J7030; J7040; J7121

== ENCOUNTER → 2023-12-14 11:00 | Outpatient (BNVA) | payer OTHER, SELFPAY | PROVIDERS: PCP Electrodiagnostic Medicine; Visit Provider Obstetrics & Gynecology | DX: N92.6 Irregular menstruation, unspecified (principal) | CPT/HCPCS: 83001 ==

== ENCOUNTER 2024-01-08 12:14 | Outpatient (CLI) | payer OTHER, SELFPAY ==
[2024-01-08 13:16] LABS: Creatinine Urine, Random 148 mg/dL (28-217); Microalbum Creatinine Ratio Ur 14 mg/dL (0-20); Microalbumin Random Urine 2 ug/dL (0-20)
[2024-01-08 13:19] LABS: Alanine Aminotransferase 18 U/L (0-33); Albumin Level 4.1 g/dL (3.5-5.2); Alkaline Phosphatase 104 U/L (35-105); Anion Gap 13.7 (5-19); Aspartate Amino Transferase 15 U/L (0-32); Blood Urea Nitrogen 12 mg/dL (6-20); Calcium 8.7 mg/dL (8.5-10.5); Carbon Dioxide 27 mmol/L (22-29); Chloride 103 mmol/L (98-107); Chol HDL Ratio 5.97 mg/dL (0.0-4.40); Cholesterol 191 mg/dL (0-200); Globulin 3.2 g/dL (1.3-4.6); Glomerular Filtration Rate 91.3 mL/min (90-130); Glucose 108 mg/dL (65-115); HDL Cholesterol 32 mg/dL (60-100); LDL Cholesterol Calculated 133 mg/dL (50-129); LDL HDL Ratio 4.16 RATIO (0.00-3.22); Osmolality Calculated 290 mOsm/kg (285-295); Potassium 3.7 mmol/L (3.5-5.1); Sodium 140 mmol/L (136-145); Total Bilirubin 0.3 mg/dL (0.15-1.2); Total Protein 7.3 g/dL (6.6-8.7); Triglycerides 128 mg/dL (0-150)
[2024-01-08 13:21] LABS: Estmated Average Glucose 117; Hemoglobin A1C 5.7 % (4.0-6.0)
== END 2024-01-08 12:15 | disposition home or self-care (01) ==
LOC: LAB 12:15
PROVIDERS: PCP Electrodiagnostic Medicine; Visit Provider Internal Medicine
DX: E11.9 Type 2 diabetes mellitus without complications (principal); E78.2 Mixed hyperlipidemia
CPT/HCPCS: 36415; 80053; 80061; 82044; 83036

== ENCOUNTER → 2024-01-15 12:25 | Outpatient (BNVA) | payer OTHER, SELFPAY | PROVIDERS: PCP Electrodiagnostic Medicine; Visit Provider Internal Medicine | DX: E11.9 Type 2 diabetes mellitus without complications (principal) | CPT/HCPCS: 36415; 84439; 84443; 84480 ==

== ENCOUNTER 2024-07-15 14:51 | Outpatient (CLI) | payer OTHER, SELFPAY ==
--- NOTE | 2024-07-15 15:00 | USR_ITS ---
PROCEDURE INFORMATION: Exam: US Soft Tissue Head and Neck, Thyroid Exam date and time: 07/15/2024 3:31 PM Age: 44 years old Clinical indication: Condition or disease; Thyroid disorder; Other: Thyromegaly; Additional info: Thyromegaly, include tirads TECHNIQUE: Imaging protocol: Real-time ultrasound scan of the neck with image documentation. Exam focused on the thyroid. COMPARISON: CT neck w con* [id number] 03/21/2023 11:47 AM FINDINGS: Right thyroid lobe: 5.3 cm x 2.3 cm x 2.1 cm Left thyroid lobe: 5.1 cm x 2.3 cm x 1.5 cm. Complex nodule left thyroid lobe 1 cm x 0.7 cm x 1.8 cm this finding has fluid density and benign morphology Isthmus: 3 mm. US/US thyroid [id number] IMPRESSION: 1. Complex mostly fluid nodule left thyroid lobe with benign morphology 2. Otherwise Unremarkable thyroid.
== END 2024-07-15 14:52 | disposition home or self-care (01) ==
LOC: RAD 14:53
PROVIDERS: PCP Electrodiagnostic Medicine; Visit Provider Internal Medicine
DX: E04.1 Nontoxic single thyroid nodule (principal)
CPT/HCPCS: 76536

== ENCOUNTER 2024-08-08 10:50 | Outpatient (CLI) | payer OTHER, SELFPAY ==
[2024-08-08 12:04] LABS: Estmated Average Glucose 108; Hemoglobin A1C 5.4 % (4.0-6.0)
[2024-08-08 12:13] LABS: Creatinine Urine, Random 420 mg/dL (28-217); Microalbum Creatinine Ratio Ur 71 mg/dL (0-20); Microalbumin Random Urine 30 ug/dL (0-20)
[2024-08-08 12:23] LABS: Alanine Aminotransferase 28 U/L (0-33); Albumin Level 3.8 g/dL (3.5-5.2); Alkaline Phosphatase 80 U/L (35-105); Anion Gap 11.4 (5-19); Aspartate Amino Transferase 17 U/L (0-32); Blood Urea Nitrogen 9 mg/dL (6-20); Calcium 8.4 mg/dL (8.5-10.5); Carbon Dioxide 29 mmol/L (22-29); Chloride 102 mmol/L (98-107); Chol HDL Ratio 6.73 mg/dL (0.0-4.40); Cholesterol 222 mg/dL (0-200); Free T4 Free Thyroxine 1.17 ng/dL (0.82-1.77); Globulin 3.3 g/dL (1.3-4.6); Glomerular Filtration Rate 77.9 mL/min (90-130); Glucose 99 mg/dL (65-115); HDL Cholesterol 33 mg/dL (60-100); LDL Cholesterol Calculated 160 mg/dL (50-129); LDL HDL Ratio 4.85 RATIO (0.00-3.22); Osmolality Calculated 287 mOsm/kg (285-295); Potassium 3.4 mmol/L (3.5-5.1); Sodium 139 mmol/L (136-145); Thyroid Stimulating Hormone 0.43 uIU/mL (0.27-4.20); Total Bilirubin 0.4 mg/dL (0.15-1.2); Total Protein 7.1 g/dL (6.6-8.7); Triglycerides 143 mg/dL (0-150)
[2024-08-09 05:11] LABS: T3 Total 116 ng/dL (76-181)
== END 2024-08-08 10:51 | disposition home or self-care (01) ==
PROVIDERS: PCP Electrodiagnostic Medicine; Visit Provider Internal Medicine
DX: E11.9 Type 2 diabetes mellitus without complications (principal); R23.2 Flushing; E01.0 Iodine-deficiency related diffuse (endemic) goiter; E78.2 Mixed hyperlipidemia; I10 Essential (primary) hypertension; E66.01 Morbid (severe) obesity due to excess calories; Z68.41 Body mass index [BMI] 40.0-44.9, adult
CPT/HCPCS: 36415; 80053; 80061; 82044; 83036; 84439; 84443; 84480

== ENCOUNTER → 2024-09-01 18:21 | Outpatient (BNVA) | payer OTHER, SELFPAY | PROVIDERS: PCP Electrodiagnostic Medicine | DX: R39.9 Unspecified symptoms and signs involving the genitourinary system (principal) | CPT/HCPCS: 81000; 87086 ==

== ENCOUNTER → 2024-10-14 09:57 | Outpatient (BNVA) | payer OTHER, SELFPAY | PROVIDERS: PCP Electrodiagnostic Medicine; Visit Provider Nurse Practitioner Women's Health | DX: G47.9 Sleep disorder, unspecified (principal); R87.610 Atypical squamous cells of undetermined significance on cytologic smear of cervix (ASC-US); R53.83 Other fatigue; L65.9 Nonscarring hair loss, unspecified; R61 Generalized hyperhidrosis; N92.6 Irregular menstruation, unspecified | CPT/HCPCS: 82306; 82607; 82728; 82746; 83525; 83540; 84402; 84403; 85025; 87624 ==

== ENCOUNTER 2024-10-20 08:31 | Outpatient (CLI) | payer OTHER, SELFPAY ==
--- NOTE | 2024-10-20 08:40 | MM_ITS ---
WS: [id number] BILATERAL SCREENING DIGITAL TOMOSYNTHESIS MAMMOGRAM WITH CAD HISTORY: Z12.31 - Encounter for screening mammogram for malignant ... COMPARISON: 01/30/2023 Bilateral CC and MLO views with tomosynthesis and synthetic mammography submitted. Computer aided detection analyzed. Breast composition: There are scattered areas of fibroglandular density. No suspicious masses, microcalcifications or architectural distortion. Stable asymmetries and a few benign calcifications are noted. MM/MM [facility] tomosynthesis [id number] IMPRESSION: BI-RADS: 2 - Benign. FOLLOW UP: 1 Year Follow-up
== END 2024-10-20 08:32 | disposition home or self-care (01) ==
LOC: RAD 08:32
PROVIDERS: PCP Electrodiagnostic Medicine; Visit Provider Nurse Practitioner Women's Health
DX: Z12.31 Encounter for screening mammogram for malignant neoplasm of breast (principal); R92.323 Mammographic fibroglandular density, bilateral breasts; R92.1 Mammographic calcification found on diagnostic imaging of breast; N64.89 Other specified disorders of breast
CPT/HCPCS: 77063; 77067

== ENCOUNTER → 2024-11-15 10:28 | Outpatient (BNVA) | payer OTHER, SELFPAY | PROVIDERS: PCP Electrodiagnostic Medicine; Visit Provider Nurse Practitioner Women's Health | DX: Z12.4 Encounter for screening for malignant neoplasm of cervix (principal) | CPT/HCPCS: 88175 ==

== ENCOUNTER → 2024-11-24 09:02 | Outpatient (BNVA) | payer OTHER, SELFPAY | PROVIDERS: PCP Electrodiagnostic Medicine; Visit Provider Nurse Practitioner Women's Health | DX: N93.9 Abnormal uterine and vaginal bleeding, unspecified (principal); N83.292 Other ovarian cyst, left side; N83.291 Other ovarian cyst, right side | CPT/HCPCS: 76830 ==

== ENCOUNTER 2025-03-16 09:33 | Outpatient (CLI) | payer SELFPAY ==
[2025-03-16 10:34] LABS: HF Add Manual Diff No
[2025-03-16 10:37] LABS: Hematocrit 39.2 % (36-47); Hemoglobin 13.00 g/dL (11.27-16.99); Mean Corpuscular HGB Conc 33.2 g/dL (30-55); Mean Corpuscular Hemoglobin 27.2 pg (27-33); Mean Corpuscular Volume 82.0 fl (85-98); Nucleated Red Blood Cells % 0 %; Platelet Count 386 10^3/cmm (157-399); Red Blood Count 4.78 10^6/uL (3.85-5.65); White Blood Count 8.21 10^3/uL (3.29-11.43)
[2025-03-16 11:19] LABS: Estmated Average Glucose 108; Hemoglobin A1C 5.4 % (4.0-6.0)
[2025-03-16 11:33] LABS: Alanine Aminotransferase 10 U/L (0-33); Albumin Level 3.9 g/dL (3.5-5.2); Alkaline Phosphatase 79 U/L (35-105); Anion Gap 13.5 (5-19); Aspartate Amino Transferase 11 U/L (0-32); Blood Urea Nitrogen 13 mg/dL (6-20); Calcium 8.5 mg/dL (8.5-10.5); Carbon Dioxide 27 mmol/L (22-29); Chloride 105 mmol/L (98-107); Cholesterol 168 mg/dL (0-200); Globulin 3.2 g/dL (1.3-4.6); Glucose 96 mg/dL (65-115); HDL Cholesterol 33 mg/dL (60-100); Osmolality Calculated 294 mOsm/kg (285-295); Potassium 3.5 mmol/L (3.5-5.1); Sodium 142 mmol/L (136-145); Thyroid Stimulating Hormone 0.67 uIU/mL (0.27-4.20); Total Protein 7.1 g/dL (6.6-8.7); Triglycerides 89 mg/dL (0-150)
== END 2025-03-16 09:34 | disposition home or self-care (01) ==
PROVIDERS: PCP Electrodiagnostic Medicine; Visit Provider Dermatology
DX: Z01.89 Encounter for other specified special examinations (principal)
CPT/HCPCS: 36415

== ENCOUNTER → 2025-03-24 15:26 | Outpatient (BNVA) | payer OTHER, SELFPAY | PROVIDERS: PCP Electrodiagnostic Medicine; Visit Provider Nurse Practitioner Women's Health | DX: R79.0 Abnormal level of blood mineral (principal) | CPT/HCPCS: 82728 ==